=== PATIENT | male | born 1970 ===

== ENCOUNTER 2022-03-03 10:13 | Emergency (ER) | payer OTHER ==
[2022-03-03] MEDS ORDERED: SODIUM CHLORIDE 0.9% 1000 ML 1,000 ML IV ONE (12:11)
[2022-03-03 13:03] LABS: Blood Urea Nitrogen 13 mg/dL (9-20); Calcium 7.8 mg/dL (8.4-10.2); Hemolysis Index 1
[2022-03-03 13:07] LABS: BUN/Creatinine Ratio 26
[2022-03-03 13:13] LABS: Hematocrit 29.3 % (35.5-45.6); Hemoglobin 9.7 gm/dl (11.8-15.2); Mean Corpuscular HGB Conc 33 % (32-34); Mean Corpuscular Volume 84 fl (84-94); Platelet Count 144 K/mm3 (140-440); Red Blood Count 3.49 M/mm3 (3.65-5.03); Red Cell Distribution Width 14.6 % (13.2-15.2)
--- NOTE | 2022-03-03 13:37 | XRay Report ---
CHEST 1 VIEW 03/03/2022 1:11 PM INDICATION / CLINICAL INFORMATION: weakness. COMPARISON: None available. FINDINGS: SUPPORT DEVICES: None. HEART / MEDIASTINUM: No significant abnormality. LUNGS / PLEURA: Diffuse bilateral pulmonary opacities No pneumothorax. ADDITIONAL FINDINGS: No significant additional findings. IMPRESSION: 1. Diffuse bilateral pulmonary opacities. Signer Name: Stanley Jacobo MD Signed: 03/03/2022 1:33 PM Workstation Name: [id number]
[2022-03-03] MEDS ORDERED: AZITHROMYCIN/NS 500 MG/250 ML 500 MG/250 ML BAG IV ONE (14:00)
[2022-03-03] MEDS ORDERED: cefTRIAXone/NS 1 GM/50 ML 1 GM/50 ML BAG IV ONE (14:00)
[2022-03-03 15:03] LABS: ABG Base Excess -1.1 mmol/L (-2.0-3.0); ABG Methemoglobin 0.7 % (0.0-1.5); ABG PCO2 35.7 mm Hg; ABG PH 7.427 pH Units (7.350-7.450); ABG PO2 61.7 mm Hg (80.0-90.0)
[2022-03-03 15:10] LABS: Mucus,Urine 3+ /HPF
[2022-03-03 15:17] VITALS: BP 118/73
[2022-03-03 15:27] LABS: Bilirubin,Urine Negative (Negative); Blood,Urine Negative (Negative); Color,Urine Amber (Yellow)
[2022-03-03 15:28] LABS: Protein,Urine <15 mg/dL mg/dL (Negative)
[2022-03-03 15:34] LABS: Basophils % (Manual) 0 % (0.0-1.8); Eosinophils % (Manual) 0 % (0.0-4.3); Total Cells Counted 100
[2022-03-03 15:35] LABS: Anisocytosis 1+
[2022-03-03 15:36] LABS: Platelet Estimate Consistent w Auto; Target Cells 1+
--- NOTE | 2022-03-03 16:18 | Emergency Department Report ---
HPI - General Chief Complaint: Medical Clearance PUI?: Yes Time Seen by Provider: 03/03/22 11:17 - HPI HPI: 51-year-old male, currently in present, brought in via officer from retirement, for evaluation of generalized weakness. Patient reports he has had an intermittent cough since he has been present on February 17, 2022. He denies any chest pain shortness of breath or difficulty breathing. He states he is visiting from [place] and has been here for 3 months. He denies any known past medical history. No nausea vomiting fevers or chills. No abdominal pain. No night sweats, no bloody cough, no unintentional weight loss. Pain currently 0 out of 10. ED Past Medical Hx - Social History Smoking Status: Unknown if ever smoked - Medications Home Medications: Home Medications Medication Instructions Recorded Confirmed Last Taken Type Doxycycline Monohydrate 100 mg PO BID 7 Days #14 03/03/22 Unknown Rx ED Review of Systems ROS: Stated complaint: RESPITORY FAILURE Other details as noted in HPI Comment: All other systems reviewed and negative Constitutional: malaise Eyes: as per HPI ENT: as per HPI Respiratory: cough Cardiovascular: as per HPI Endocrine: no symptoms reported Gastrointestinal: denies: abdominal pain, nausea, vomiting, diarrhea, constipation, hematemesis, melena, hematochezia Genitourinary: denies: urgency, dysuria, frequency, hematuria, discharge, testicular pain, testicular mass, other Musculoskeletal: denies: back pain, joint swelling, arthralgia Skin: denies: rash, lesions, change in color, change in hair/nails, pruritus Neurological: denies: headache, weakness, paresthesias, confusion Physical Exam - Physical Exam Vital Signs: Vital Signs 03/03/22 03/03/22 03/03/22 10:13 10:45 11:01 Temperature 98.2 F Pulse Rate 104 H 98 H 86 Respiratory 18 23 13 Rate Blood Pressure 107/71 107/71 Blood Pressure 130/75 [Left] O2 Sat by Pulse 97 97 97 Oximetry 03/03/22 03/03/22 03/03/22 11:15 11:31 11:45 Temperature Pulse Rate 91 H 87 95 H Respiratory 12 11 L 21 Rate Blood Pressure 107/67 108/68 121/75 Blood Pressure [Left] O2 Sat by Pulse 95 96 95 Oximetry 03/03/22 03/03/22 03/03/22 12:01 12:15 12:31 Temperature Pulse Rate 81 86 82 Respiratory 13 16 12 Rate Blood Pressure 121/75 113/72 112/72 Blood Pressure [Left] O2 Sat by Pulse 95 92 93 Oximetry 03/03/22 03/03/22 03/03/22 12:45 13:01 13:15 Temperature Pulse Rate Respiratory Rate Blood Pressure 122/77 113/72 119/78 Blood Pressure [Left] O2 Sat by Pulse 98 100 99 Oximetry 03/03/22 03/03/22 03/03/22 13:31 13:46 14:59 Temperature Pulse Rate Respiratory Rate Blood Pressure 118/73 118/73 118/73 Blood Pressure [Left] O2 Sat by Pulse 98 98 99 Oximetry 03/03/22 03/03/22 15:01 15:15 Temperature Pulse Rate Respiratory Rate Blood Pressure 118/73 118/73 Blood Pressure [Left] O2 Sat by Pulse 100 100 Oximetry General: Gen: Middle-age male, cachectic and emaciated appearing, lying in stretcher, speaking in full sentences, wearing nasal cannula, no drooling no stridor no respiratory distress, HEENT: Normocephalic atraumatic pupils equally round and reactive to light extraocular muscles intact sclera anicteric Neck: Full range of motion, no midline spinal tenderness palpation, no JVD, no carotid bruits, no nuchal rigidity CVS: S1-S2 regular rate and rhythm with no gallops rubs or murmurs, chest wall nontender Pulmonary: Clear to auscultation bilaterally, no wheezes rales or rhonchi Abdomen: Soft nondistended nontender no guarding or rebound tenderness, no palpable deformities or step-offs, normal active bowel sounds, no hepatosplenomegaly, no pulsatile masses : Deferred Extremities: No cyanosis no clubbing no edema, intact distal peripheral pulses, Integumentary: Skin normal, no petechia no purpura no abscess no lacerations no evidence of trauma no evidence of infection Neuro: Patient is awake alert and oriented to person place time situation, mentating well, cranial nerves II through XII intact, no focal neurodeficits, sensation grossly tact Psych: Calm cooperative, mood affect normal ED Course Vital Signs 03/03/22 03/03/22 03/03/22 10:13 10:45 11:01 Temperature 98.2 F Pulse Rate 104 H 98 H 86 Respiratory 18 23 13 Rate Blood Pressure 107/71 107/71 Blood Pressure 130/75 [Left] O2 Sat by Pulse 97 97 97 Oximetry 03/03/22 03/03/22 03/03/22 11:15 11:31 11:45 Temperature Pulse Rate 91 H 87 95 H Respiratory 12 11 L 21 Rate Blood Pressure 107/67 108/68 121/75 Blood Pressure [Left] O2 Sat by Pulse 95 96 95 Oximetry 03/03/22 03/03/22 03/03/22 12:01 12:15 12:31 Temperature Pulse Rate 81 86 82 Respiratory 13 16 12 Rate Blood Pressure 121/75 113/72 112/72 Blood Pressure [Left] O2 Sat by Pulse 95 92 93 Oximetry 03/03/22 03/03/22 03/03/22 12:45 13:01 13:15 Temperature Pulse Rate Respiratory Rate Blood Pressure 122/77 113/72 119/78 Blood Pressure [Left] O2 Sat by Pulse 98 100 99 Oximetry 03/03/22 03/03/22 03/03/22 13:31 13:46 14:59 Temperature Pulse Rate Respiratory Rate Blood Pressure 118/73 118/73 118/73 Blood Pressure [Left] O2 Sat by Pulse 98 98 99 Oximetry 03/03/22 03/03/22 15:01 15:15 Temperature Pulse Rate Respiratory Rate Blood Pressure 118/73 118/73 Blood Pressure [Left] O2 Sat by Pulse 100 100 Oximetry - Reevaluation(s) Reevaluation #1: 03/03/22 16:15 I had an extensive discussion with the patient and advised him that he be admitted to the hospital due to his low oxygen level as well as bilateral pneumonia. However the patient adamantly refused stating "I [facility] to [facility] so they can release me so I can go back home to [place]." I strongly encouraged him repeatedly to be admitted to the hospital given that without supplemental oxygen his oxygen level remains in the 80s and he is at risk for decompensation. The patient is awake alert and oriented to person place and time and situation is mentating well. Per my clinical assessment he has a decision-making capacity. He is not in any extremis he is not altered and he appears to be mentating well. Risks of leaving AGAINST MEDICAL ADVICE were discussed at length with him. Patient informed that risk included but were not limited to: Respiratory failure, spreading infection, cardiac arrest, need for CPR, broken ribs, lung collapse, prolonged periods of low to no oxygen to brain, stroke, blindness, multiple organ failure, paralysis, chronic pain, need for tracheostomy, fertility, and . Patient is able to explain these risk back to me in his own words and does not appear to be confused or altered at the time of our discussion. Able to explain them in layman's terms. Patient signed out AGAINST MEDICAL ADVICE. He was discharged back to retirement in the custody of the accompanying attendance officer. ED Medical Decision Making - Lab Data Result diagrams: 03/03/22 12:19 03/03/22 12:19 - EKG Data -: EKG Interpreted by Me EKG shows normal: sinus rhythm Rate: normal - EKG Data When compared to previous EKG there are: previous EKG unavailable Interpretation: no acute changes - Radiology Data Radiology results: report reviewed - Medical Decision Making 51-year-old M presenting male brought in from retirement for evaluation of low oxygen levels and reports of cough. Patient on supplemental oxygen via nasal c annula here. When I turned the patient's oxygen off he maintained an oxygen saturation of 90% on room air. However with movement the patient was noted to have oxygen desaturation. ABG demonstrates confirmed high hypoxemia. Labs reviewed. COVID-negative. Chest x-ray demonstrates bilateral pulmonary infiltrates. Patient refused admission to the hospital. Risk of leaving AMA were discussed at length with him. Patient is awake alert and oriented to person place time situation is mentating well. He is in no extremis and has no altered sensorium. Patient was able to explain risk back to me in his own words without any obvious confusion or misunderstanding. Patient signed out AGAINST MEDICAL ADVICE. Critical Care Time: No Critical care attestation.: If time is entered above; I have spent that time in minutes in the direct care of this critically ill patient, excluding procedure time. ED Disposition Clinical Impression: Left against medical advice, Hypoxemia, Pneumonia Disposition: 07 LEFT AGAINST MEDICAL ADVICE Is pt being admited?: No Does the pt Need Aspirin: No Condition: Stable Instructions: Bacterial Pneumonia (ED) Additional Instructions: Your COVID test today is negative. You are leaving AGAINST MEDICAL ADVICE. Your oxygen level is low and you have pneumonia in both of your lungs. Strongly advised that you be admitted to the hospital so that you can receive supplemental oxygen as well as to be given antibiotics intravenously. By leaving AGAINST MEDICAL ADVICE you are excepting sole responsibility that he you may become worse, he may not be able to breathe, your lungs and heart may stop, your organs may fail, and you may . Take doxycycline 100mg by mouth twice a day for 7 days. Be sure to finish your entire prescription. Go to the nearest emergency department as soon as possible if you develop severe or worsening shortness of breath, chest pain, lightheadedness or dizziness, fever of 100.4 Fahrenheit or higher, or if any other new worrisome symptoms develop Prescriptions: Doxycycline Monohydrate 100 mg PO BID 7 Days #14 Referrals: JUSTIN SEGAL MD [Primary Care Provider] - 3-5 Days
== END 2022-03-03 16:25 | disposition left against medical advice (07) ==
LOC: ED 10:13
DX: J18.9 Pneumonia, unspecified organism (principal); R09.02 Hypoxemia; Z20.822 Contact with and (suspected) exposure to COVID-19; Z79.899 Other long term (current) drug therapy
CPT/HCPCS: 36415; 71045; 80048; 81001; 82803; 83880; 85007; 85025; 87040; 96361; 96365; 96367; 99284; J0456; J0696; J7030; U0003

== ENCOUNTER 2022-03-05 10:57 | Inpatient (IN) | payer OTHER ==
--- NOTE | 2022-03-05 11:59 | Emergency Department Report ---
ED General Adult HPI - General Chief complaint: Altered Mental Status Stated complaint: POSS SEPSIS Time Seen by Provider: 03/05/22 11:29 Source: EMS Mode of arrival: Stretcher Limitations: Altered Mental Status - History of Present Illness Initial comments: 51 yo male prisoner with no reported medical problems presents from nursing home with complaints of "possible sepsis". Patient is alert and fully oriented, but is very cachectic appearing, however patient only complains of sacral pain where he has a sacral decubitus. Patient was found hypotensive and tachycardic with a fever prior to arrival. Patient denies cough, sore throat, chest pain, or urinary symptoms. Patient denies nausea, vomiting, or abdominal pain. Patient states that he was tested for COVID-19 in nursing home, and that it was negative. Patient was seen here 2 days ago, and was expected to be admitted, but signed out AGAINST MEDICAL ADVICE. Patient was dehydrated on that visit to the emergency department and received fluids to help with his hypotension. Otherwise, patient denies any known alleviating or aggravating factors. - Related Data Previous Rx's Medication Instructions Recorded Last Taken Type Doxycycline Monohydrate 100 mg PO BID 7 Days #14 03/03/22 Unknown Rx Allergies Allergy/AdvReac Type Severity Reaction Status Date / Time No Known Allergies Allergy Unverified 03/03/22 10:25 ED Review of Systems ROS: Stated complaint: POSS SEPSIS Other details as noted in HPI Comment: All other systems reviewed and negative (Patient denies any complaints, however appears to be confabulating or in denial) Constitutional: no symptoms reported. denies: chills, fever, weakness Eyes: denies: eye pain, eye discharge, vision change ENT: denies: ear pain, throat pain Respiratory: no symptoms reported. denies: cough, shortness of breath, wheezing Cardiovascular: denies: chest pain, palpitations Endocrine: no symptoms reported Gastrointestinal: denies: abdominal pain, nausea, diarrhea Genitourinary: denies: urgency, dysuria Musculoskeletal: denies: back pain, joint swelling, arthralgia Skin: other (Decubitus ulcer). denies: rash, lesions Neurological: denies: headache, weakness, paresthesias Psychiatric: denies: anxiety, depression Hematological/Lymphatic: denies: easy bleeding, easy bruising ED Past Medical Hx - Past Medical History Additional medical history: Patient denies any medical or psychiatric diagnoses - Social History Smoking Status: Unknown if ever smoked - Medications Home Medications: Home Medications Medication Instructions Recorded Confirmed Last Taken Type Doxycycline Monohydrate 100 mg PO BID 7 Days #14 03/03/22 03/07/22 Unknown Rx ED Physical Exam - General Limitations: Physical Limitation General appearance: alert, in no apparent distress, cachectic, other (Very thin with bitemporal wasting) - Head Head exam: Present: atraumatic, normocephalic - Eye Eye exam: Present: normal appearance, PERRL, EOMI - ENT ENT exam: Present: mucous membranes dry - Neck Neck exam: Present: normal inspection - Respiratory Respiratory exam: Present: normal lung sounds bilaterally. Absent: respiratory distress - Cardiovascular Cardiovascular Exam: Present: normal rhythm, tachycardia. Absent: systolic murmur, diastolic murmur, rubs, gallop - GI/Abdominal GI/Abdominal exam: Present: soft, normal bowel sounds. Absent: distended, tenderness, guarding - Rectal Rectal exam: Present: deferred - Extremities Exam Extremities exam: Present: normal inspection - Back Exam Back exam: Present: normal inspection - Neurological Exam Neurological exam: Present: alert, oriented X3, CN II-XII intact, abnormal gait, other (Appears generalized weak and has difficulty moving around in his stretcher) - Psychiatric Psychiatric exam: Present: normal affect, normal mood, flat affect - Skin Skin exam: Present: warm, dry, intact, normal color, pallor, other (Large sacral decubitus ulcer with a dressing in place). Absent: rash ED Course Vital Signs 03/05/22 03/05/22 03/05/22 11:03 11:23 11:31 Temperature 100.5 F H Pulse Rate 110 H 104 H 99 H Respiratory 22 15 Rate Blood Pressure 88/51 Blood Pressure 88/54 [Left] O2 Sat by Pulse 79 L 91 91 Oximetry 03/05/22 03/05/22 03/05/22 11:45 12:01 12:15 Temperature Pulse Rate 103 H 94 H 92 H Respiratory 21 16 21 Rate Blood Pressure 96/59 96/59 96/59 Blood Pressure [Left] O2 Sat by Pulse 88 91 90 Oximetry 03/05/22 03/05/22 03/05/22 12:31 12:45 13:01 Temperature Pulse Rate 88 93 H 91 H Respiratory 17 13 12 Rate Blood Pressure 96/59 90/58 90/58 Blood Pressure [Left] O2 Sat by Pulse 92 91 91 Oximetry 03/05/22 03/05/22 03/05/22 13:15 13:31 13:45 Temperature Pulse Rate 88 90 90 Respiratory 13 16 21 Rate Blood Pressure 90/58 90/58 90/58 Blood Pressure [Left] O2 Sat by Pulse 91 93 80 L Oximetry 03/05/22 03/05/22 03/05/22 14:01 14:15 14:31 Temperature Pulse Rate 87 85 85 Respiratory 25 H 16 12 Rate Blood Pressure 125/73 125/73 125/73 Blood Pressure [Left] O2 Sat by Pulse 95 95 93 Oximetry 03/06/22 03/06/22 03/06/22 09:01 09:03 09:04 Temperature 98.2 F Pulse Rate 101 H Respiratory 18 Rate Blood Pressure 119/62 Blood Pressure [Left] O2 Sat by Pulse 94 Oximetry 03/06/22 03/06/22 03/06/22 10:01 11:01 12:01 Temperature Pulse Rate Respiratory Rate Blood Pressure 125/82 105/70 127/78 Blood Pressure [Left] O2 Sat by Pulse 94 91 92 Oximetry 03/06/22 03/06/22 03/06/22 13:01 14:01 15:00 Temperature 100.3 F H Pulse Rate 110 H Respiratory Rate Blood Pressure 162/105 140/76 Blood Pressure [Left] O2 Sat by Pulse 95 86 Oximetry 03/06/22 03/06/22 03/06/22 15:01 16:01 16:19 Temperature Pulse Rate Respiratory Rate Blood Pressure 104/62 113/76 113/76 Blood Pressure [Left] O2 Sat by Pulse 87 94 93 Oximetry 03/06/22 03/06/22 03/06/22 17:00 18:00 19:00 Temperature Pulse Rate 112 H Respiratory 18 Rate Blood Pressure 113/76 96/44 97/54 Blood Pressure [Left] O2 Sat by Pulse 90 90 93 Oximetry 03/06/22 03/06/22 03/06/22 20:01 21:01 22:01 Temperature Pulse Rate Respiratory Rate Blood Pressure 99/62 104/71 113/73 Blood Pressure [Left] O2 Sat by Pulse 89 95 95 Oximetry 03/06/22 03/06/22 03/07/22 23:01 23:16 00:01 Temperature Pulse Rate Respiratory Rate Blood Pressure 118/76 115/74 Blood Pressure [Left] O2 Sat by Pulse 93 96 91 Oximetry 03/07/22 03/07/22 03/07/22 01:01 01:11 01:21 Temperature Pulse Rate Respiratory Rate Blood Pressure 130/73 130/73 130/73 Blood Pressure [Left] O2 Sat by Pulse 93 96 96 Oximetry 03/07/22 01:30 Temperature Pulse Rate Respiratory Rate Blood Pressure 130/73 Blood Pressure [Left] O2 Sat by Pulse 96 Oximetry - Reevaluation(s) Reevaluation #1: Patient had improvement of his vital signs after fluids, but decision was made to admit the patient to the hospital, as he continued to be hypoxic. Reevaluation #2: After evaluation by the hospitalist, it was decided that the patient would be discharged back to [facility] as his vital signs have improved, greatly, and he is on oxygen in the present. ED Medical Decision Making - Lab Data Result diagrams: 03/09/22 05:58 03/09/22 05:58 Critical Care Time: Yes Critical care time in (mins) excluding proc time.: 33 Critical care attestation.: If time is entered above; I have spent that time in minutes in the direct care of this critically ill patient, excluding procedure time. Critical Care Time: 33 ED Disposition Clinical Impression: Renal mass, Hypoxemia Bilateral pneumonia Qualifiers: Pneumonia type: due to unspecified organism Lung location: unspecified part of lung Qualified Code(s): J18.9 - Pneumonia, unspecified organism Sacral decubitus ulcer Qualifiers: Pressure injury stage: unspecified pressure injury stage Qualified Code(s): L89.159 - Pressure ulcer of sacral region, unspecified stage Disposition: ADMITTED INPATIENT Is pt being admited?: Yes Does the pt Need Aspirin: No Condition: Stable
[2022-03-05] MEDS ORDERED: SODIUM CHLORIDE 0.9% 1000 ML 1,000 ML IV ONE (12:04)
[2022-03-05] MEDS ORDERED: CEFEPIME/NS 1 GM/100 ML 1 GM/100 ML BAG IV ONE (12:08)
[2022-03-05] MEDS ORDERED: VANCOMYCIN/NS 1 GM/250 ML 1 GM/250 ML BAG IV ONE (12:08)
--- NOTE | 2022-03-05 12:53 | XRay Report ---
CHEST 1 VIEW 03/05/2022 11:45 AM INDICATION / CLINICAL INFORMATION: Weakness. COMPARISON: 03/03/2022 FINDINGS: SUPPORT DEVICES: None. HEART / MEDIASTINUM: No significant abnormality. LUNGS / PLEURA: Bilateral pulmonary opacities appear grossly unchanged since the exam 2 days ago. No pneumothorax. ADDITIONAL FINDINGS: No significant additional findings. IMPRESSION: 1. No significant interval change. Stable bilateral pulmonary opacities or congestive changes. Signer Name: Abraham Del Valle Jr, MD Signed: 03/05/2022 12:49 PM Workstation Name: [id number]
[2022-03-05 13:03] LABS: Hematocrit 27.8 % (35.5-45.6); Hemoglobin 9.2 gm/dl (11.8-15.2); Mean Corpuscular HGB Conc 33 % (32-34); Mean Corpuscular Volume 84 fl (84-94); Platelet Count 143 K/mm3 (140-440); Red Blood Count 3.29 M/mm3 (3.65-5.03)
[2022-03-05 13:08] LABS: Alanine Aminotransferase 23 units/L (7-56); Blood Urea Nitrogen 12 mg/dL (9-20); Calcium 7.8 mg/dL (8.4-10.2); Hemolysis Index 2
[2022-03-05 13:10] LABS: BUN/Creatinine Ratio 30
[2022-03-05 13:35] LABS: INR 1.11 (0.87-1.13)
[2022-03-05 16:10] LABS: Bilirubin,Urine Negative (Negative); Color,Urine Yellow (Yellow)
[2022-03-05 16:11] LABS: Blood,Urine Negative (Negative); Protein,Urine <15 mg/dL mg/dL (Negative)
[2022-03-05 16:40] LABS: Anisocytosis 1+; Basophils % (Manual) 0 % (0.0-1.8); Eosinophils % (Manual) 0 % (0.0-4.3); Monocytes % (Manual) 0 % (0.0-7.3); Myelocytes # (Manual) 0.3 K/mm3; Platelet Estimate Consistent w Auto; Target Cells 1+; Total Cells Counted 100
--- NOTE | 2022-03-05 16:54 | Cat Scan Report ---
CT ABDOMEN AND PELVIS WITH CONTRAST INDICATION / CLINICAL INFORMATION: sacral decubitus and sepsis; r/o perianal abscess 100ml of [id number] . TECHNIQUE: Axial CT images were obtained through the abdomen and pelvis after 100 cc of Omnipaque [address] scans at this location are performed using CT dose reduction for ALARA by means of automated exposure control. COMPARISON: None available. FINDINGS: LOWER CHEST: Groundglass attenuation is noted in the bilateral lung bases. In the bilateral lower lob es there are foci of increased consolidations well. Within the lingula there is a subpleural nodular- like density measuring 1.2 x 1.5 cm. AORTA / ARTERIES: No significant abnormality. IVC / VEINS: No significant abnormality. LYMPH NODES: Evaluation limited secondary to lack of intraperitoneal fat COLON: No significant abnormality. APPENDIX: No significant abnormality. STOMACH / SMALL BOWEL: No significant abnormality. PERITONEUM: No free fluid. No free air. No fluid collection. LIVER: No significant abnormality. GALLBLADDER: No significant abnormality. BILE DUCTS: No significant abnormality. PANCREAS: No significant abnormality. SPLEEN: No significant abnormality. ADRENALS: No significant abnormality. RIGHT KIDNEY / URETER: There is a masslike density within the interpolar region of the right kidney m easuring approximately 3.1 x 3.3 x 3.4 cm. LEFT KIDNEY / URETER: There is a prominent stone within the left collecting system measuring 1.7 x 1. 2 x 1.9 cm. There is associated moderate hydronephrosis. URINARY BLADDER: No significant abnormality. REPRODUCTIVE ORGANS: No significant abnormality. SKELETAL SYSTEM: Scattered degeneration. ADDITIONAL FINDINGS: Along the left perineum there is focal area of skin thickening with subcutaneous emphysema. This does not demonstrate a clearly identifiable fluid collection. IMPRESSION: 1. Along the left perineum there is a focal area of skin thickening with subcutaneous emphysema sugge sting infectious process. No clearly identifiable drainable fluid collection. 2. Masslike density within the interpolar region of the left kidney measuring up to 3.4 cm. This may represent a prominent column of Joshua; however, the spherical shape of this is of concern and additi onal imaging with renal ultrasound is advised. 3. Prominent 1.9 cm stone within the left collecting system causing moderate hydronephrosis. 4. Groundglass attenuation within the bilateral lung bases concerning for atypical infectious process . There is also increased consolidation within the bilateral lower lobes and superimposed bacterial i nfectious process is not excluded. 5. Single incidental pulmonary nodule(s) in the left lingular lobe measuring 15 mm with solid charact eristics. Recommendation according to Fleischner Society 2017 Guidelines: Low Risk or High Risk Patie nt: Consider CT at 3 months, PET/CT, or tissue sampling. Signer Name: Clinton Rangel DO Signed: 03/05/2022 4:50 PM Workstation Name: [id number]
[2022-03-05 17:13] LABS: RBC,Urine < 1.0 /HPF (0.0-6.0); WBC,Urine < 1.0 /HPF (0.0-6.0)
--- NOTE | 2022-03-05 22:14 | Event Note ---
Date: 03/05/22 Patient comes in for fever Patient was evaluated on 03/03/2022. patient has bilateral pulmonary opacities and is on oxygen at the [facility]. During my examination patient is stable and O2 saturation around 94% on room air Blood pressure is normal after IV fluids Discharge diagnosis viral syndrome and acute bronchitis Patient discharged on Levaquin for 7 days@50 mg once a day Patient to continue oxygen at [facility] Patient also has underlying possible pulmonary fibrosis-advanced bilateral opacities on the chest x-ray
[2022-03-06] MEDS ORDERED: SODIUM CHLORIDE 0.9% 1000 ML 1,000 ML IV ONE (14:41)
[2022-03-06] MEDS ORDERED: ACETAMINOPHEN 325 MG/10.15 ML ORAL LIQD UNIT DOSE PO ONE (14:41)
[2022-03-06] MEDS ORDERED: ACETAMINOPHEN 325 MG TAB PO PRN (19:58)
[2022-03-06] MEDS ORDERED: MORPHINE 2 MG/1 ML INJ IV PRN (19:58)
[2022-03-06] MEDS ORDERED: ONDANSETRON 4 MG/2 ML INJ IV PRN (19:58)
[2022-03-06] MEDS ORDERED: SODIUM CHLORIDE 0.9% 1000 ML 1,000 ML IV SCH (20:00)
[2022-03-06] MEDS ORDERED: IPRATROPIUM/ALBUTEROL SULFATE 3 ML AMPUL.NEB IH PRN (20:06)
--- NOTE | 2022-03-06 20:23 | Emergency Department Report ---
Blank Doc - Documentation Documentation: Patient was discharged from the emergency department, yesterday, but was relea sed from police custody, and did not have a way to get home. Patient had been on oxygen in the [place] [facility], and had a walker to help him get around, but has difficulty ambulating here and becomes hypoxic when he ambulates and/or when his oxygen is turned down or off. Case management evaluated the patient, and denied provide oxygen therapy for him to go home with, nor could they provide transportation. Patient's family cannot pick him up until Thursday, when he is scheduled to fly back to [place], where he lives. A ticket has already been purchased for him. While patient was waiting for a ride, he became hypoxic, again. He became tachycardic and was found to have a fever and mild hypotension again. With that, his generalized weakness, his inability to perform ADLs, it was agreed that the patient would be admitted to the hospital for further treatment.
[2022-03-06] MEDS: cefTRIAXone/NS 2 GM/100 ML 2 GM/100 ML BAG IV SCH (22:29)
[2022-03-07] MEDS: AZITHROMYCIN/NS 500 MG/250 ML 500 MG/250 ML BAG IV SCH ×2 (01:55→02:14)
[2022-03-07] MEDS: FAMOTIDINE 20 MG TAB PO SCH ×3 (01:56→21:38)
[2022-03-07] MEDS: HEPARIN 5,000 UNIT/1 ML VIAL SUB-Q SCH ×3 (01:56→21:37)
[2022-03-07] MEDS: methylPREDNISolone Sod Succinate 125 MG/2 ML INJ IV SCH ×4 (01:57→21:37)
--- NOTE | 2022-03-07 06:44 | History and Physical Report ---
History of Present Illness Date of examination: 03/06/22 Date of admission: 03/06/22 19:58 Chief complaint: Persistent hypoxia History of present illness: Patient was evaluated by me yesterday and was discharged from the emergency room. Patient apparently had home oxygen. Patient has pulmonary fibrosis and hypoxia. Has some cough. Patient was not discharged because of social issues and charges were dropped by the police department. Home oxygen could not be arranged and transportation could not be arranged. Patient continues to be in emergency room needing oxygen and breathing treatments. On room air patient's oxygen saturation is 82. Otherwise lying comfortably. ER note Patient was discharged from the emergency department, yesterday, but was released from police custody, and did not have a way to get home. Patient had been on oxygen in the residential, and had a walker to help him get around, but has difficulty ambulating here and becomes hypoxic when he ambulates and/or when his oxygen is turned down or off. Case management evaluated the patient, and denied provide oxygen therapy for him to go home with, nor could they provide transportation. Patient's family cannot pick him up until Thursday, when he is scheduled to fly back to [place], where he lives. A ticket has already been purchased for him. While patient was waiting for a ride, he became hypoxic, again. He became tachycardic and was found to have a fever and mild hypotension again. With that, his generalized weakness, his inability to perform ADLs, it was agreed that the patient would be admitted to the hospital for further treatment. Past History Past Medical History: COPD, other (COPD) Past Surgical History: No surgical history, Other (Poor historian) Social history: lives with family, full code Family history: hypertension Medications and Allergies Allergies Allergy/AdvReac Type Severity Reaction Status Date / Time No Known Allergies Allergy Unverified 03/03/22 10:25 Home Medications Medication Instructions Recorded Confirmed Last Taken Type Doxycycline Monohydrate 100 mg PO BID 7 Days #14 03/03/22 Unknown Rx Active Meds: Active Medications Acetaminophen (Acetaminophen 325 Mg Tab) 650 mg PO Q4H PRN PRN Reason: Pain MILD(1-3)/Fever >100.5/LOPEZ Albuterol/Ipratropium (Ipratropium/Albuterol Sulfate 3 Ml Ampul.Neb) 1 ampul IH QIDRT MINOO Famotidine (Famotidine 20 Mg Tab) 20 mg PO BID [facility] Last Admin: 03/07/22 01:56 Dose: Not Given Heparin Sodium (Porcine) (Heparin 5,000 Unit/1 Ml Vial) 5,000 unit SUB-Q Q12HR [facility] Last Admin: 03/07/22 01:56 Dose: Not Given Sodium Chloride (Nacl 0.9% 1000 Ml) 1,000 mls @ 75 mls/hr IV DIRECT MINOO Azithromycin (Zithromax/Ns) 500 mg in 250 mls @ 250 mls/hr IV Q24H [facility] Last Admin: 03/07/22 02:14 Dose: 250 mls/hr Ceftriaxone Sodium (Rocephin/Ns 2 Gm/100 Ml) 2 gm in 100 mls @ 200 mls/hr IV Q24HR [facility]; Protocol Last Admin: 03/06/22 22:29 Dose: 200 mls/hr Methylprednisolone Sodium Succinate (Methylprednisolone Sod Succinate 125 Mg/2 Ml Inj) 60 mg IV Q8HR [facility] Last Admin: 03/07/22 05:51 Dose: 60 mg Morphine Sulfate (Morphine 2 Mg/1 Ml Inj) 2 mg IV Q4H PRN PRN Reason: Pain, Moderate (4-6) Last Admin: 03/06/22 22:29 Dose: 2 mg Ondansetron HCl (Ondansetron 4 Mg/2 Ml Inj) 4 mg IV Q8H PRN PRN Reason: Nausea And Vomiting Oxycodone/Acetaminophen (Oxycodone /Acetaminophen 5-325mg Tab) 1 tab PO Q6H PRN PRN Reason: Pain, Moderate (4-6) Sodium Chloride (Sodium Chloride 0.9% 10 Ml Flush Syringe) 10 ml IV BID [facility] Last Admin: 03/07/22 01:56 Dose: Not Given Sodium Chloride (Sodium Chloride 0.9% 10 Ml Flush Syringe) 10 ml IV PRN PRN PRN Reason: LINE FLUSH Review of Systems All systems: negative Exam - Constitutional Vitals: Temp Pulse Resp BP Pulse Ox 98.3 F 76 18 121/75 95 03/07/22 04:48 03/07/22 04:48 03/07/22 04:48 03/07/22 04:48 03/07/22 04:48 General appearance: Present: mild distress, well-nourished - EENT Eyes: Present: PERRL ENT: hearing intact, clear oral mucosa - Neck Neck: Present: supple, normal ROM - Respiratory Respiratory effort: normal Respiratory: bilateral: CTA, rhonchi - Cardiovascular Heart rate: 78 Rhythm: regular Heart Sounds: Present: S1 & S2. Absent: rub, click - Extremities Extremities: pulses symmetrical, No edema Peripheral Pulses: within normal limits - Abdominal General gastrointestinal: Present: soft, non-tender, non-distended, normal bowel sounds Male genitourinary: Present: normal - Integumentary Integumentary: Present: clear, warm, dry - Musculoskeletal Musculoskeletal: gait normal, strength equal bilaterally - Psychiatric Psychiatric: appropriate mood/affect, intact judgment & insight - Neurologic Neurologic: CNII-XII intact, moves all extremities HEART Score - HEART Score Troponin: Troponin T < 0.010 ng/mL (0.00-0.029) 03/05/22 12:22 Results - Labs CBC & Chem 7: 03/05/22 12:22 03/05/22 12:22 Labs: Laboratory Last Values WBC 4.3 K/mm3 (4.5-11.0) L 03/05/22 12:22 RBC 3.29 M/mm3 (3.65-5.03) L 03/05/22 12:22 Hgb 9.2 gm/dl (11.8-15.2) L 03/05/22 12:22 Hct 27.8 % (35.5-45.6) L 03/05/22 12:22 MCV 84 fl (84-94) 03/05/22 12:22 MCH 28 pg (28-32) 03/05/22 12:22 MCHC 33 % (32-34) 03/05/22 12:22 RDW 15.0 % (13.2-15.2) 03/05/22 12:22 Plt Count 143 K/mm3 (140-440) 03/05/22 12:22 Add Manual Diff Complete 03/05/22 12:22 Total Counted 100 03/05/22 12:22 Seg Neuts % (Manual) 73.0 % (40.0-70.0) H 03/05/22 12:22 Band Neutrophils % 0 % 03/05/22 12:22 Lymphocytes % (Manual) 16.0 % (13.4-35.0) 03/05/22 12:22 Reactive Lymphs % (Man) 1.0 % 03/05/22 12:22 Monocytes % (Manual) 0 % (0.0-7.3) 03/05/22 12:22 Eosinophils % (Manual) 0 % (0.0-4.3) 03/05/22 12:22 Basophils % (Manual) 0 % (0.0-1.8) 03/05/22 12:22 Metamyelocytes % 3.0 % 03/05/22 12:22 Myelocytes % 7.0 % 03/05/22 12:22 Promyelocytes % 0 % 03/05/22 12:22 Blast Cells % 0 % 03/05/22 12:22 Nucleated RBC % Not Reportable 03/05/22 12: Seg Neutrophils # Man 3.1 K/mm3 (1.8-7.7) 03/05/22 12:22 Band Neutrophils # 0.0 K/mm3 03/05/22 12:22 Lymphocytes # (Manual) 0.7 K/mm3 (1.2-5.4) L 03/05/22 12:22 Abs React Lymphs (Man) 0.0 K/mm3 03/05/22 12:22 Monocytes # (Manual) 0.0 K/mm3 (0.0-0.8) 03/05/22 12:22 Eosinophils # (Manual) 0.0 K/mm3 (0.0-0.4) 03/05/22 12:22 Basophils # (Manual) 0.0 K/mm3 (0.0-0.1) 03/05/22 12:22 Metamyelocytes # 0.1 K/mm3 03/05/22 12:22 Myelocytes # 0.3 K/mm3 03/05/22 12:22 Promyelocytes # 0.0 K/mm3 03/05/22 12:22 Blast Cells # 0.0 K/mm3 03/05/22 12:22 WBC Morphology Not Reportable 03/05/22 12:22 Hypersegmented Neuts Not Reportable 03/05/22 12:22 Hyposegmented Neuts Not Reportable 03/05/22 12:22 Hypogranular Neuts Not Reportable 03/05/22 12:22 Smudge Cells Not Reportable 03/05/22 12:22 Toxic Granulation Not Reportable 08/10/22 12:22 Toxic Vacuolation Not Reportable 03/05/22 12:22 Dohle Bodies Not Reportable 03/05/22 12:22 Pelger-Huet Anomaly Not Reportable 03/05/22 12:22 Laura Rods Not Reportable 03/05/22 12:22 Platelet Estimate Consistent w auto 03/05/22 12:22 Clumped Platelets Not Reportable 03/05/22 12:22 Plt Clumps, EDTA Not Reportable 03/05/22 12:22 Large Platelets Not Reportable 03/05/22 12:22 Giant Platelets Not Reportable 03/05/22 12:22 Platelet Satelliting Not Reportable 03/05/22 12:22 Plt Morphology Comment Not Reportable 03/05/22 12:22 RBC Morphology Not Reportable 03/05/22 12:22 Dimorphic RBCs Not Reportable 03/05/22 12:22 Polychromasia Few 03/05/22 12:22 Hypochromasia Not Reportable 03/05/22 12:22 Poikilocytosis Not Reportable 03/05/22 12:22 Anisocytosis 1+ 03/05/22 12:22 Microcytosis Not Reportable 03/05/22 12:22 Macrocytosis Not Reportable 03/05/22 12:22 Spherocytes Not Reportable 03/05/22 12:22 Pappenheimer Bodies Not Reportable 03/05/22 12:22 Sickle Cells Not Reportable 03/05/22 12:22 Target Cells 1+ 03/05/22 12:22 Tear Drop Cells Not Reportable 03/05/22 12:22 Ovalocytes Not Reportable 03/05/22 12:22 Helmet Cells Not Reportable 03/05/22 12:22 [place]-Loving Bodies Not Reportable 03/05/22 12:22 [place] Rings Not Reportable 03/05/22 12:22 [place] Cells Not Reportable 03/05/22 12:22 Bite Cells Not Reportable 03/05/22 12:22 Crenated Cell Not Reportable 03/05/22 12:22 Elliptocytes Not Reportable 03/05/22 12:22 Acanthocytes (Spur) Not Reportable 03/05/22 12:22 Rouleaux Not Reportable 03/05/22 12:22 Hemoglobin C Crystals Not Reportable 03/05/22 12:22 Schistocytes Not Reportable 03/05/22 12:22 Malaria parasites Not Reportable 03/05/22 12:22 Nelson Bodies Not Reportable 03/05/22 12:22 Hem Pathologist Commnt No 03/05/22 12:22 PT 15.6 Sec. (12.2-14.9) H 03/05/22 12:22 INR 1.11 (0.87-1.13) 03/05/22 12:22 Sodium 137 mmol/L (137-145) 03/05/22 12:22 Potassium 4.1 mmol/L (3.6-5.0) 03/05/22 12:22 Chloride 105.3 mmol/L (98-107) 03/05/22 12:22 Carbon Dioxide 24 mmol/L (22-30) 03/05/22 12:22 Anion Gap 12 mmol/L 03/05/22 12:22 BUN 12 mg/dL (9-20) 03/05/22 12:22 Creatinine 0.4 mg/dL (0.8-1.3) L 03/05/22 12:22 Estimated GFR > 60 ml/min 03/05/22 12:22 BUN/Creatinine Ratio 30 % 03/05/22 12:22 Glucose 93 mg/dL (75-100) 03/05/22 12:22 Calcium 7.8 mg/dL (8.4-10.2) L 03/05/22 12:22 Total Bilirubin 0.20 mg/dL (0.1-1.2) 03/05/22 12:22 AST 51 units/L (5-40) H 03/05/22 12:22 ALT 23 units/L (7-56) 03/05/22 12:22 Alkaline Phosphatase 70 units/L (35-129) 03/05/22 12:22 Lactate Dehydrogenase 493 units/L (91-180) H 03/05/22 12:22 Troponin T < 0.010 ng/mL (0.00-0.029) 03/05/22 12:22 Total Protein 5.8 g/dL (6.3-8.2) L 03/05/22 12:22 Albumin 2.0 g/dL (3.9-5) L 03/05/22 12:22 Albumin/Globulin Ratio 0.5 % 03/05/22 12:22 Urine Color Yellow (Yellow) 03/05/22 13:57 Urine Turbidity Clear (Clear) 03/05/22 13:57 Urine pH 6.0 (5.0-7.0) 03/05/22 13:57 Ur Specific [place] 1.015 (1.003-1.030) 03/05/22 13:57 Urine Protein <15 mg/dl mg/dL (Negative) 03/05/22 13:57 Urine Glucose (UA) Negative mg/dL (Negative) 03/05/22 13:57 Urine Ketones Negative mg/dL (Negative) 03/05/22 13:57 Urine Blood Negative (Negative) 03/05/22 13:57 Urine Nitrite Negative (Negative) 03/05/22 13:57 Urine Bilirubin Negative (Negative) 03/05/22 13:57 Urine Urobilinogen 0.0 mg/dL (<2.0) 03/05/22 13:57 Ur Leukocyte Esterase Negative (Negative) 03/05/22 13:57 Urine WBC (Auto) < 1.0 /HPF (0.0-6.0) 03/05/22 13:57 Urine RBC (Auto) < 1.0 /HPF (0.0-6.0) 03/05/22 13:57 U Epithel Cells (Auto) 1.0 /HPF (0-13.0) 03/05/22 13:57 Microbiology: Microbiology 03/05/22 12:22 Peripheral/Venous Blood Culture - Preliminary NO GROWTH AFTER 24 HOURS 03/05/22 12:22 Peripheral/Venous Blood Culture - Preliminary NO GROWTH AFTER 24 HOURS - Imaging and Cardiology Chest x-ray: report reviewed CT scan - abdomen: report reviewed Imaging and Cardiology: Chest x-ray Stable bilateral pulmonary opacities or congestive changes Abdomen/pelvis CT Maxillary density reviewed with her interpolar region of the left kidney measuring up to 3.4 cm . imaging with ultrasound advised. Probable 1.9 cm stone within the left collecting system. Moderate hydronephrosis. Groundglass attenuation of the bilateral lung bases concerning for atypical infectious process. There is also increased consolidation within the bilateral lower lobes and superimposed bacterial infectious process is not excluded. Single incidental pulmonary nodules in the left lingular lobe measuring 15 mm with solid .. Leonard/IV: Voiding Method Urinal Assessment and Plan Advance Directives: Yes (Full code) VTE prophylaxis?: Chemical Plan of care discussed with patient/family: Yes - Patient Problems (1) Acute respiratory failure with hypoxia Current Visit: Yes Status: Acute Plan to address problem: Possibility of underlying pneumonia and COPD Patient started on IV antibiotics, duo nebs and steroids (2) Bilateral pneumonia Current Visit: Yes Status: Acute Plan to address problem: Patient initiated on Zithromax and IV Rocephin. COVID-pneumonia to be ruled out. Steroids DuoNebs [id number] and as needed. (3) COPD exacerbation Current Visit: Yes Status: Acute Plan to address problem: Patient is never a smoker. Duo nebs, IV antibiotics and IV steroids. Pulmonary consult requested. (4) Right renal mass Current Visit: Yes Status: Chronic Plan to address problem: Renal ultrasound requested for delineation. (5) DVT prophylaxis Current Visit: Yes Status: Acute Plan to address problem: On heparin GI prophylaxis (6) Advance care planning Current Visit: Yes Status: Acute Plan to address problem: Disease education conducted, care plan discussed, diagnosis discussed, patient acknowledged understanding with care plan and +30 minutes.
[2022-03-07] MEDS ORDERED: methylPREDNISolone Sod Succinate 125 MG/2 ML INJ IV SCH (07:00)
[2022-03-07 08:41] LABS: Hematocrit 26.8 % (35.5-45.6); Hemoglobin 9.2 gm/dl (11.8-15.2); Mean Corpuscular HGB Conc 34 % (32-34); Mean Corpuscular Volume 83 fl (84-94); Platelet Count 156 K/mm3 (140-440); Red Blood Count 3.24 M/mm3 (3.65-5.03); Red Cell Distribution Width 14.3 % (13.2-15.2)
--- NOTE | 2022-03-07 08:46 | Electrocardiograph Report ---
[facility] Test Date: 2022-03-05 Test Time: 11:26:05 Pat Name: CYNTHIA ORELLANA Department: Room: A377 Gender: M Clinical Statistics Manager: [birth year] : 1970 Requested By: FUNMILAYO GUILLORY Order Number: [id number] Reading MD: Jakub Salmeron Measurements Intervals [place] Rate: 100 P: 71 WI: 119 QRS: 74 QRSD: 77 T: 83 QT: 335 QTc: 431 Interpretive Statements Sinus tachycardia Nonspecific T abnrm, anterolateral leads ST elev, probable normal early repol pattern No previous ECG available for comparison Electronically Signed On 03-07-2022 8:46:16 EDT by Jakub Salmeron
[2022-03-07 08:50] LABS: Alanine Aminotransferase 48 units/L (7-56); Albumin 1.8 g/dL (3.9-5); Blood Urea Nitrogen 10 mg/dL (9-20); Calcium 7.8 mg/dL (8.4-10.2); Hemolysis Index 0
[2022-03-07 08:51] LABS: Blood Urea Nitrogen 10 mg/dL (9-20); Calcium 7.5 mg/dL (8.4-10.2); Hemolysis Index 1
[2022-03-07] MEDS: IPRATROPIUM/ALBUTEROL SULFATE 3 ML AMPUL.NEB IH SCH ×3 (08:51→15:49)
[2022-03-07 08:53] LABS: BUN/Creatinine Ratio 20; BUN/Creatinine Ratio 25
[2022-03-07] MEDS: cefTRIAXone/NS 2 GM/100 ML 2 GM/100 ML BAG IV SCH (09:16)
[2022-03-07] MEDS: oxyCODONE /ACETAMINOPHEN 5-325MG TAB PO PRN (09:24)
[2022-03-07] MEDS: guaiFENesin 100 MG/5 ML ORAL LIQD PO PRN (09:27)
--- NOTE | 2022-03-07 10:30 | Progress Note ---
Assessment and Plan Assessment and plan: #Bilateral pneumonia secondary to possible gram-negative and atypical bacteria #Acute hypoxic respiratory failure - etiology: Bilateral pneumonia - baseline oxygen requirements: Room air - supplemental oxygen: 2-3 L nasal cannula - Continue protocol: continue pulse oximetry, wean oxygen as tolerated, ordered incentive spirometry and educated patient on how to use it and its importance. Continue IV methylprednisolone 60 mg every 6 hours, azithromycin 500 mg daily, Rocephin 1 mg daily. Continue DuoNebs. Pending coronavirus PCR and sputum culture and HIV screening. Elevated acute phase reactants: Ferritin 2160, LDH 551, CRP 15.2. Concern for possible undiagnosed HIV infection; if this is the case, patient will be started on Bactrim. - continue to monitor #Left renal mass CT abdomen and pelvis without contrast (03/06/2022) revealing masslike density within the interpolar region of the left kidney measuring up to 3.4 cm that may represent a prominent column of Joshua. The spherical shape is of concern and renal ultrasound has been recommended. Also revealing prominent 1.9 cm stone within the left collecting duct causing moderate hydronephrosis. Pending renal ultrasound #Pulmonary nodule Measuring 15 mm with solid characteristics. Monitor with repeat CT chest at 3 months, PET/CT, or tissue sampling. #Moderate protein caloric malnutrition Albumin 1.8 Starting dietary supplementation #Advanced care planning -Disease education conducted, care plan discussed, diagnoses discussed, prognosis discussed, and patient acknowledges understanding with care plan -Time: +30 min Disposition Plan: Continue medical management Total Time Spent with Patient (Minutes): 45 minutes History Interval history: No acute events overnight. Hospitalist Physical - Constitutional Vitals: Temp Pulse Resp BP Pulse Ox 98.3 F 103 H 20 121/75 93 03/07/22 04:48 03/07/22 08:51 03/07/22 08:51 03/07/22 04:48 03/07/22 08:51 General appearance: Present: mild distress, well-nourished - EENT Eyes: Present: PERRL, EOM intact ENT: hearing intact, clear oral mucosa, dentition normal - Neck Neck: Present: supple, normal ROM - Respiratory Respiratory effort: normal Respiratory: bilateral: diminished (On 2 L nasal cannula) - Cardiovascular Rhythm: regular Heart Sounds: Present: S1 & S2 - Extremities Extremities: no ischemia, pulses intact, pulses symmetrical, No edema, normal temperature, normal color Peripheral Pulses: within normal limits - Abdominal General gastrointestinal: soft, non-tender, non-distended, normal bowel sounds - Integumentary Integumentary: Present: clear, warm, dry - Psychiatric Psychiatric: appropriate mood/affect, memory intact, cooperative - Neurologic Neurologic: CNII-XII intact - Allied Health Allied health notes reviewed: nursing HEART Score - HEART Score Troponin: Troponin T < 0.010 ng/mL (0.00-0.029) 03/05/22 12:22 Results - Labs CBC & Chem 7: 03/07/22 08:02 03/07/22 08:02 Labs: Laboratory Last Values WBC 3.9 K/mm3 (4.5-11.0) L 03/07/22 08:02 RBC 3.24 M/mm3 (3.65-5.03) L 03/07/22 08:02 Hgb 9.2 gm/dl (11.8-15.2) L 03/07/22 08:02 Hct 26.8 % (35.5-45.6) L 03/07/22 08:02 MCV 83 fl (84-94) L 03/07/22 08:02 MCH 28 pg (28-32) 03/07/22 08:02 MCHC 34 % (32-34) 03/07/22 08:02 RDW 14.3 % (13.2-15.2) 03/07/22 08:02 Plt Count 156 K/mm3 (140-440) 03/07/22 08:02 Add Manual Diff Complete 03/05/22 12: Total Counted 100 03/05/22 12: Seg Neuts % (Manual) 73.0 % (40.0-70.0) H 03/05/22 12:22 Band Neutrophils % 0 % 03/05/22 12:22 Lymphocytes % (Manual) 16.0 % (13.4-35.0) 03/05/22 12:22 Reactive Lymphs % (Man) 1.0 % 03/05/22 12:22 Monocytes % (Manual) 0 % (0.0-7.3) 03/05/22 12:22 Eosinophils % (Manual) 0 % (0.0-4.3) 03/05/22 12: Basophils % (Manual) 0 % (0.0-1.8) 03/05/22 12:22 Metamyelocytes % 3.0 % 03/05/22 12:22 Myelocytes % 7.0 % 03/05/22 12:22 Promyelocytes % 0 % 03/05/22 12:22 Blast Cells % 0 % 03/05/22 12:22 Nucleated RBC % Not Reportable 03/05/22 12: Seg Neutrophils # Man 3.1 K/mm3 (1.8-7.7) 03/05/22 12:22 Band Neutrophils # 0.0 K/mm3 03/05/22 12:22 Lymphocytes # (Manual) 0.7 K/mm3 (1.2-5.4) L 03/05/22 12:22 Abs React Lymphs (Man) 0.0 K/mm3 03/05/22 12:22 Monocytes # (Manual) 0.0 K/mm3 (0.0-0.8) 03/05/22 12:22 Eosinophils # (Manual) 0.0 K/mm3 (0.0-0.4) 03/05/22 12:22 Basophils # (Manual) 0.0 K/mm3 (0.0-0.1) 03/05/22 12:22 Metamyelocytes # 0.1 K/mm3 03/05/22 12:22 Myelocytes # 0.3 K/mm3 03/05/22 12:22 Promyelocytes # 0.0 K/mm3 03/05/22 12:22 Blast Cells # 0.0 K/mm3 03/05/22 12:22 WBC Morphology Not Reportable 03/05/22 12:22 Hypersegmented Neuts Not Reportable 03/05/22 12:22 Hyposegmented Neuts Not Reportable 03/05/22 12:22 Hypogranular Neuts Not Reportable 03/05/22 12:22 Smudge Cells Not Reportable 03/05/22 12:22 Toxic Granulation Not Reportable 03/05/22 12:22 Toxic Vacuolation Not Reportable 03/05/22 12:22 Dohle Bodies Not Reportable 03/05/22 12:22 Pelger-Huet Anomaly Not Reportable 03/05/22 12:22 Laura Rods Not Reportable 03/05/22 12:22 Platelet Estimate Consistent w auto 03/05/22 12:22 Clumped Platelets Not Reportable 03/05/22 12:22 Plt Clumps, EDTA Not Reportable 03/05/22 12:22 Large Platelets Not Reportable 03/05/22 12:22 Giant Platelets Not Reportable 03/05/22 12:22 Platelet Satelliting Not Reportable 03/05/22 12:22 Plt Morphology Comment Not Reportable 03/05/22 12:22 RBC Morphology Not Reportable 03/05/22 12:22 Dimorphic RBCs Not Reportable 03/05/22 12:22 Polychromasia Few 03/05/22 12:22 Hypochromasia Not Reportable 03/05/22 12:22 Poikilocytosis Not Reportable 03/05/22 12:22 Anisocytosis 1+ 03/05/22 12:22 Microcytosis Not Reportable 03/05/22 12:22 Macrocytosis Not Reportable 03/05/22 12:22 Spherocytes Not Reportable 03/05/22 12:22 Pappenheimer Bodies Not Reportable 03/05/22 12:22 Sickle Cells Not Reportable 03/05/22 12:22 Target Cells 1+ 03/05/22 12:22 Tear Drop Cells Not Reportable 03/05/22 12:22 Ovalocytes Not Reportable 03/05/22 12:22 Helmet Cells Not Reportable 03/05/22 12:22 Montelongo-Hurst Bodies Not Reportable 03/05/22 12:22 [place] Rings Not Reportable 03/05/22 12:22 Kasey Cells Not Reportable 03/05/22 12:22 Bite Cells Not Reportable 03/05/22 12:22 Crenated Cell Not Reportable 03/05/22 12:22 Elliptocytes Not Reportable 03/05/22 12:22 Acanthocytes (Spur) Not Reportable 03/05/22 12:22 Rouleaux Not Reportable 03/05/22 12:22 Hemoglobin C Crystals Not Reportable 03/05/22 12:22 Schistocytes Not Reportable 03/05/22 12:22 Malaria parasites Not Reportable 03/05/22 12:22 Nelson Bodies Not Reportable 03/05/22 12:22 Hem Pathologist Commnt No 03/05/22 12:22 PT 15.6 Sec. (12.2-14.9) H 03/05/22 12:22 INR 1.11 (0.87-1.13) 03/05/22 12:22 D-Dimer 1441.90 ng/mlDDU (0-234) H 03/07/22 08:02 Sodium 129 mmol/L (137-145) L 03/07/22 08:02 Sodium 130 mmol/L (137-145) L D 03/07/22 08:02 Potassium 4.0 mmol/L (3.6-5.0) 03/07/22 08:02 Potassium 4.1 mmol/L (3.6-5.0) 03/07/22 08:02 Chloride 96.2 mmol/L (98-107) L 03/07/22 08:02 Chloride 97.6 mmol/L (98-107) L 03/07/22 08:02 Carbon Dioxide 23 mmol/L (22-30) 03/07/22 08:02 Carbon Dioxide 23 mmol/L (22-30) 03/07/22 08:02 Anion Gap 14 mmol/L 03/07/22 08:02 Anion Gap 14 mmol/L 03/07/22 08:02 BUN 10 mg/dL (9-20) 03/07/22 08:02 BUN 10 mg/dL (9-20) 03/07/22 08:02 Creatinine 0.4 mg/dL (0.8-1.3) L 03/07/22 08:02 Creatinine 0.5 mg/dL (0.8-1.3) L 03/07/22 08:02 Estimated GFR > 60 ml/min 03/07/22 08:02 Estimated GFR > 60 ml/min 03/07/22 08:02 BUN/Creatinine Ratio 20 % 03/07/22 08:02 BUN/Creatinine Ratio 25 % 03/07/22 08:02 Glucose 119 mg/dL (75-100) H 03/07/22 08:02 Glucose 122 mg/dL (75-100) H 03/07/22 08:02 Lactic Acid 1.90 mmol/L (0.7-2.0) 03/07/22 08:02 Calcium 7.5 mg/dL (8.4-10.2) L 03/07/22 08:02 Calcium 7.8 mg/dL (8.4-10.2) L 03/07/22 08:02 Ferritin 2161.0 ng/mL (30.0-300.0) H 03/07/22 08:02 Total Bilirubin 0.20 mg/dL (0.1-1.2) 03/07/22 08:02 AST 86 units/L (5-40) H 03/07/22 08:02 ALT 48 units/L (7-56) 03/07/22 08:02 Alkaline Phosphatase 97 units/L (35-129) 03/07/22 08:02 Lactate Dehydrogenase 551 units/L (91-180) H 03/07/22 08:02 Troponin T < 0.010 ng/mL (0.00-0.029) 03/05/22 12:22 C-Reactive Protein 15.20 mg/dL (0.00-1.30) H 03/07/22 08:02 Total Protein 5.8 g/dL (6.3-8.2) L 03/07/22 08:02 Albumin 1.8 g/dL (3.9-5) L 03/07/22 08:02 Albumin/Globulin Ratio 0.5 % 03/07/22 08:02 Urine Color Yellow (Yellow) 03/05/22 13:57 Urine Turbidity Clear (Clear) 03/05/22 13:57 Urine pH 6.0 (5.0-7.0) 03/05/22 13:57 Ur Specific [place] 1.015 (1.003-1.030) 03/05/22 13:57 Urine Protein <15 mg/dl mg/dL (Negative) 03/05/22 13:57 Urine Glucose (UA) Negative mg/dL (Negative) 03/05/22 13:57 Urine Ketones Negative mg/dL (Negative) 03/05/22 13:57 Urine Blood Negative (Negative) 03/05/22 13:57 Urine Nitrite Negative (Negative) 03/05/22 13:57 Urine Bilirubin Negative (Negative) 03/05/22 13:57 Urine Urobilinogen 0.0 mg/dL (<2.0) 03/05/22 13:57 Ur Leukocyte Esterase Negative (Negative) 03/05/22 13:57 Urine WBC (Auto) < 1.0 /HPF (0.0-6.0) 03/05/22 13:57 Urine RBC (Auto) < 1.0 /HPF (0.0-6.0) 03/05/22 13:57 U Epithel Cells (Auto) 1.0 /HPF (0-13.0) 03/05/22 13:57 Microbiology: Microbiology 03/05/22 12:22 Peripheral/Venous Blood Culture - Preliminary NO GROWTH AFTER 24 HOURS 03/05/22 12:22 Peripheral/Venous Blood Culture - Preliminary NO GROWTH AFTER 24 HOURS Leonard/IV: Voiding Method Urinal Active Medications - Current Medications Current Medications: Generic Name Dose Route Start Last Admin Trade Name Freq PRN Reason Stop Dose Admin Acetaminophen 650 mg 03/06/22 19:58 Acetaminophen 325 Mg Tab PO Q4H PRN Pain MILD(1-3)/Fever >100.5/LOPEZ Albuterol/Ipratropium 1 ampul 03/07/22 08:00 03/07/22 08:51 Ipratropium/Albuterol Sulfate 3 Ml Ampul.Neb IH 1 ampul QIDRT MINOO Administration Famotidine 20 mg 03/06/22 22:00 03/07/22 09:17 Famotidine 20 Mg Tab PO 20 mg BID MINOO Administration Guaifenesin 200 mg 03/07/22 09:15 03/07/22 09:27 Guaifenesin 100 Mg/5 Ml Oral Liqd PO 200 mg Q4H PRN Administration Cough Heparin Sodium (Porcine) 5,000 unit 03/06/22 22:00 03/07/22 09:17 Heparin 5,000 Unit/1 Ml Vial SUB-Q 5,000 unit Q12HR MINOO Administration Azithromycin 500 mg in 250 mls @ 250 mls/hr 03/06/22 21:00 03/07/22 02:14 Zithromax/Ns IV 250 mls/hr Q24H MINOO Administration Ceftriaxone Sodium 2 gm in 100 mls @ 200 mls/hr 03/06/22 21:00 03/07/22 09:16 Rocephin/Ns 2 Gm/100 Ml IV 200 mls/hr Q24HR MINOO Administration Protocol Methylprednisolone Sodium Succinate 60 mg 03/06/22 22:00 03/07/22 05:51 Methylprednisolone Sod Succinate 125 Mg/2 Ml Inj IV 60 mg Q8HR MINOO Administration Morphine Sulfate 2 mg 03/06/22 19:58 03/06/22 22:29 Morphine 2 Mg/1 Ml Inj IV 2 mg Q4H PRN Administration Pain, Moderate (4-6) Ondansetron HCl 4 mg 03/06/22 19:58 Ondansetron 4 Mg/2 Ml Inj IV Q8H PRN Nausea And Vomiting Oxycodone/Acetaminophen 1 tab 03/06/22 19:58 03/07/22 09:24 Oxycodone /Acetaminophen 5-325mg Tab PO 1 tab Q6H PRN Administration Pain, Moderate (4-6) Sodium Chloride 10 ml 03/06/22 22:00 03/07/22 09:17 Sodium Chloride 0.9% 10 Ml Flush Syringe IV 10 ml BID MINOO Administration Sodium Chloride 10 ml 03/06/22 19:58 Sodium Chloride 0.9% 10 Ml Flush Syringe IV PRN PRN LINE FLUSH
[2022-03-07 10:31] LABS: Basophils % (Manual) 0 % (0.0-1.8); Eosinophils % (Manual) 0 % (0.0-4.3); Platelet Estimate Consistent w Auto; Target Cells 2+; Total Cells Counted 100
[2022-03-07] MEDS: WATER IV SCH ×3 (12:59→23:55)
[2022-03-07] MEDS: SMX IV SCH ×3 (12:59→23:55)
[2022-03-07] MEDS: DEXTROSE 5% IV SCH ×3 (12:59→23:55)
[2022-03-07] MEDS: TMP IV SCH ×3 (12:59→23:55)
--- NOTE | 2022-03-07 13:59 | Event Note ---
Date: 03/07/22 51 y/o male HIV positive recently discharged from assisted admitted with hypoxemia, acute respiratory failure and abnormal CXR. patient has already left [facility] from the ED before and plans to leave this hospital on Thursday to fly back to [place]. 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
[2022-03-08] MEDS: IPRATROPIUM/ALBUTEROL SULFATE 3 ML AMPUL.NEB IH SCH ×3 (04:47→20:25)
[2022-03-08] MEDS: WATER IV SCH ×3 (05:24→18:36)
[2022-03-08] MEDS: DEXTROSE 5% IV SCH ×3 (05:24→18:36)
[2022-03-08] MEDS: SMX IV SCH ×3 (05:24→18:36)
[2022-03-08] MEDS: oxyCODONE /ACETAMINOPHEN 5-325MG TAB PO PRN (05:24)
[2022-03-08] MEDS: methylPREDNISolone Sod Succinate 125 MG/2 ML INJ IV SCH ×3 (05:24→22:24)
[2022-03-08] MEDS: TMP IV SCH ×3 (05:24→18:36)
--- NOTE | 2022-03-08 08:24 | Cat Scan Report ---
CT chest w con INDICATION / CLINICAL INFORMATION: Evaluate for PJP vs tuberculosis. TECHNIQUE: Axial CT imaging of the chest was obtained with 100 mL Omnipaque 350 IV contrast. Coronal and sagitta l reformatted imaging obtained and reviewed. All CT scans at this location are performed using CT do se reduction for ALARA by means of automated exposure control. COMPARISON: Chest radiograph 03/05/2022 FINDINGS: CT chest with contrast demonstrates grossly normal appearance of the mediastinum and pulmonary lizeth b ilaterally. Heart size is normal. No coronary artery calcification or pericardial effusion is noted. Groundglass opacities are present bilaterally in a pattern typical for atypical pneumonia. There is m ore focal consolidation with air bronchograms in both lower lobes especially on the left. Very small bilateral pleural effusions are present. There is pulmonary nodule within the lingula that is pleural -based, measuring approximately 1.7 cm. No cystic lesion identified. No pneumothorax noted. Imaging of the upper abdomen demonstrates a known large calculus in the left renal pelvis measuring 1 8 mm. Calculus is causing hydronephrosis. Please see separately dictated CT abdomen report from 2021. No acute osseous abnormality noted. IMPRESSION: 1. Bilateral mosaic groundglass opacities are present with more focal consolidation involving both lo wer lobes. Very small bilateral pleural effusions are noted. . The overall appearance is highly sugge stive for atypical pneumonia, with PJP pneumonia within the differential if clinically appropriate.. Signer Name: Indira Recio MD Signed: 03/08/2022 8:20 AM Workstation Name: [id number]
[2022-03-08] MEDS ORDERED: ALBUTEROL 2.5 MG/3 ML NEBU IH PRN (08:34)
[2022-03-08] MEDS: FAMOTIDINE 20 MG TAB PO SCH ×2 (09:25→22:24)
[2022-03-08] MEDS: guaiFENesin 100 MG/5 ML ORAL LIQD PO PRN (09:25)
[2022-03-08] MEDS: cefTRIAXone/NS 2 GM/100 ML 2 GM/100 ML BAG IV SCH (09:25)
[2022-03-08] MEDS: HEPARIN 5,000 UNIT/1 ML VIAL SUB-Q SCH ×2 (09:25→22:25)
[2022-03-08] MEDS: NYSTATIN 500,000 UNIT/5 ML ORAL LIQD PO SCH ×3 (14:05→22:25)
[2022-03-09] MEDS: SMX IV SCH ×4 (01:48→18:11)
[2022-03-09] MEDS: TMP IV SCH ×4 (01:48→18:11)
[2022-03-09] MEDS: WATER IV SCH ×4 (01:48→18:11)
[2022-03-09] MEDS: DEXTROSE 5% IV SCH ×4 (01:48→18:11)
[2022-03-09] MEDS: methylPREDNISolone Sod Succinate 125 MG/2 ML INJ IV SCH ×3 (05:42→21:25)
[2022-03-09 06:22] LABS: Hematocrit 29.3 % (35.5-45.6); Hemoglobin 9.5 gm/dl (11.8-15.2); Mean Corpuscular HGB Conc 33 % (32-34); Mean Corpuscular Volume 83 fl (84-94); Platelet Count 180 K/mm3 (140-440); Red Blood Count 3.52 M/mm3 (3.65-5.03)
[2022-03-09 06:42] LABS: Blood Urea Nitrogen 14 mg/dL (9-20); Calcium 8.3 mg/dL (8.4-10.2); Hemolysis Index 2
[2022-03-09 06:44] LABS: BUN/Creatinine Ratio 35
--- NOTE | 2022-03-09 07:53 | Progress Note ---
Assessment and Plan Assessment and plan: #Bilateral pneumonia secondary to possible gram-negative and atypical bacteria #Acute hypoxic respiratory failure - etiology: Bilateral pneumonia - baseline oxygen requirements: Room air - supplemental oxygen: 2-3 L nasal cannula - Continue protocol: continue pulse oximetry, wean oxygen as tolerated, ordered incentive spirometry and educated patient on how to use it and its importance. Continue IV methylprednisolone 60 mg every 6 hours, azithromycin 500 mg daily, Rocephin 1 mg daily. Continue DuoNebs. Unremarkable coronavirus PCR. Elevated acute phase reactants: Ferritin 2160, LDH 551, CRP 15.2. 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 St arting p.o. azithromycin 500 mg every 48 hours for MAC prophylaxis. Infectious disease consulted; pending recs Pulmonology consulted; appreciate recs CT chest without contrast revealing atypical infection (and PJP is included in the differential). Placing under airborne isolation and having patient placed in negative pressure room. Pending QuantiFERON gold and sputum culture. #Neutropenia - WBC decreased from 4.3--> 3.9--> 0.6 - Hematology consulted; pending recs #Left renal mass CT abdomen and pelvis without contrast (03/06/2022) revealing masslike density within the interpolar region of the left kidney measuring up to 3.4 cm that may represent a prominent column of Joshua. The spherical shape is of concern and renal ultrasound has been recommended. Also revealing prominent 1.9 cm stone within the left collecting duct causing moderate hydronephrosis. #Pulmonary nodule Measuring 15 mm with solid characteristics. Monitor with repeat CT chest at 3 months, PET/CT, or tissue sampling. #Moderate protein caloric malnutrition Albumin 1.8 Continue dietary supplementation #Advanced care planning -Disease education conducted, care plan discussed, diagnoses discussed, prognosis discussed, and patient acknowledges understanding with care plan -Time: +30 min Disposition Plan: Continue medical management Total Time Spent with Patient (Minutes): 45 min History Interval history: No acute events overnight. Hospitalist Physical - Constitutional Vitals: Temp Pulse Resp BP Pulse Ox 97.8 F 74 16 136/84 93 03/08/22 20:54 03/08/22 20:54 03/08/22 20:54 03/08/22 20:54 03/08/22 22:00 General appearance: Present: no acute distress, well-nourished - EENT Eyes: Present: PERRL, EOM intact ENT: hearing intact, clear oral mucosa, dentition normal - Neck Neck: Present: supple, normal ROM - Respiratory Respiratory effort: normal Respiratory: bilateral: diminished (on 3L nasal cannula) - Cardiovascular Rhythm: regular Heart Sounds: Present: S1 & S2 - Extremities Extremities: no ischemia, pulses intact, pulses symmetrical, No edema, normal temperature, normal color, Full ROM Peripheral Pulses: within normal limits - Abdominal General gastrointestinal: soft, non-tender, non-distended, normal bowel sounds - Integumentary Integumentary: Present: clear, warm, dry - Psychiatric Psychiatric: appropriate mood/affect, memory intact, other (refusing lab draws) - Neurologic Neurologic: CNII-XII intact, moves all extremities - Allied Health Allied health notes reviewed: nursing HEART Score - HEART Score Troponin: Troponin T < 0.010 ng/mL (0.00-0.029) 03/05/22 12:22 Results - Labs CBC & Chem 7: 03/09/22 05:58 03/09/22 05:58 Labs: Laboratory Last Values WBC 0.6 K/mm3 (4.5-11.0) L* 03/09/22 05:58 RBC 3.52 M/mm3 (3.65-5.03) L 03/09/22 05:58 Hgb 9.5 gm/dl (11.8-15.2) L 03/09/22 05:58 Hct 29.3 % (35.5-45.6) L 03/09/22 05:58 MCV 83 fl (84-94) L 03/09/22 05:58 MCH 27 pg (28-32) L 03/09/22 05:58 MCHC 33 % (32-34) 03/09/22 05:58 RDW 15.0 % (13.2-15.2) 03/09/22 05:58 Plt Count 180 K/mm3 (140-440) 03/09/22 05:58 Carson % (Auto) Analytic Programmer 03/09/22 05:58 Add Manual Diff Complete 03/07/22 08:02 Total Counted 100 03/07/22 08:02 Seg Neuts % (Manual) 69.0 % (40.0-70.0) 03/07/22 08:02 Band Neutrophils % 0 % 03/07/22 08:02 Lymphocytes % (Manual) 27.0 % (13.4-35.0) 03/07/22 08:02 Reactive Lymphs % (Man) 0 % 03/07/22 08:02 Monocytes % (Manual) 4.0 % (0.0-7.3) 03/07/22 08:02 Eosinophils % (Manual) 0 % (0.0-4.3) 03/07/22 08:02 Basophils % (Manual) 0 % (0.0-1.8) 03/07/22 08:02 Metamyelocytes % 0 % 03/07/22 08:02 Myelocytes % 0 % 03/07/22 08:02 Promyelocytes % 0 % 03/07/22 08:02 Blast Cells % 0 % 03/07/22 08:02 Nucleated RBC % Not Reportable 03/07/22 08:02 Seg Neutrophils # Man 2.7 K/mm3 (1.8-7.7) 03/07/22 08:02 Band Neutrophils # 0.0 K/mm3 03/07/22 08:02 Lymphocytes # (Manual) 1.1 K/mm3 (1.2-5.4) L 03/07/22 08:02 Abs React Lymphs (Man) 0.0 K/mm3 03/07/22 08:02 Monocytes # (Manual) 0.2 K/mm3 (0.0-0.8) 03/07/22 08:02 Eosinophils # (Manual) 0.0 K/mm3 (0.0-0.4) 03/07/22 08:02 Basophils # (Manual) 0.0 K/mm3 (0.0-0.1) 03/07/22 08:02 Metamyelocytes # 0.0 K/mm3 03/07/22 08:02 Myelocytes # 0.0 K/mm3 03/07/22 08:02 Promyelocytes # 0.0 K/mm3 03/07/22 08:02 Blast Cells # 0.0 K/mm3 03/07/22 08:02 WBC Morphology Not Reportable 03/07/22 08:02 Hypersegmented Neuts Not Reportable 03/07/22 08:02 Hyposegmented Neuts Not Reportable 03/07/22 08:02 Hypogranular Neuts Not Reportable 03/07/22 08:02 Smudge Cells Not Reportable 03/07/22 08:02 Toxic Granulation Not Reportable 03/07/22 08:02 Toxic Vacuolation Not Reportable 03/07/22 08:02 Dohle Bodies Not Reportable 03/07/22 08:02 Pelger-Huet Anomaly Not Reportable 03/07/22 08:02 Laura Rods Not Reportable 03/07/22 08:02 Platelet Estimate Consistent w auto 03/07/22 08:02 Clumped Platelets Not Reportable 03/07/22 08:02 Plt Clumps, EDTA Not Reportable 03/07/22 08:02 Large Platelets Not Reportable 03/07/22 08:02 Giant Platelets Not Reportable 03/07/22 08:02 Platelet Satelliting Not Reportable 03/07/22 08:02 Plt Morphology Comment Not Reportable 03/07/22 08:02 RBC Morphology Not Reportable 03/07/22 08:02 Dimorphic RBCs Not Reportable 03/07/22 08:02 Polychromasia Few 03/07/22 08:02 Hypochromasia Not Reportable 03/07/22 08:02 Poikilocytosis Not Reportable 03/07/22 08:02 Anisocytosis Not Reportable 03/07/22 08:02 Microcytosis Not Reportable 03/07/22 08:02 Macrocytosis Not Reportable 03/07/22 08:02 Spherocytes Not Reportable 03/07/22 08:02 Pappenheimer Bodies Not Reportable 03/07/22 08:02 Sickle Cells Not Reportable 03/07/22 08:02 Target Cells 2+ 03/07/22 08:02 Tear Drop Cells Not Reportable 03/07/22 08:02 Ovalocytes Not Reportable 03/07/22 08:02 Helmet Cells Not Reportable 03/07/22 08:02 [place] Bodies Not Reportable 03/07/22 08:02 [place] Rings Not Reportable 03/07/22 08:02 Mcgrew Cells Not Reportable 03/07/22 08:02 Bite Cells Not Reportable 03/07/22 08:02 Crenated Cell Not Reportable 03/07/22 08:02 Elliptocytes Not Reportable 03/07/22 08:02 Acanthocytes (Spur) Not Reportable 03/07/22 08:02 Rouleaux Not Reportable 03/07/22 08:02 Hemoglobin C Crystals Not Reportable 03/07/22 08:02 Schistocytes Not Reportable 03/07/22 08:02 Malaria parasites Not Reportable 03/07/22 08:02 Nelson Bodies Not Reportable 03/07/22 08:02 Hem Pathologist Commnt No 03/07/22 08:02 PT 15.6 Sec. (12.2-14.9) H 03/05/22 12:22 INR 1.11 (0.87-1.13) 03/05/22 12:22 D-Dimer 1441.90 ng/mlDDU (0-234) H 03/07/22 08:02 Sodium 134 mmol/L (137-145) L 03/09/22 05:58 Potassium 4.4 mmol/L (3.6-5.0) 03/09/22 05:58 Chloride 98.0 mmol/L (98-107) 03/09/22 05:58 Carbon Dioxide 24 mmol/L (22-30) 03/09/22 05:58 Anion Gap 16 mmol/L 03/09/22 05:58 BUN 14 mg/dL (9-20) 03/09/22 05:58 Creatinine 0.4 mg/dL (0.8-1.3) L 03/09/22 05:58 Estimated GFR > 60 ml/min 03/09/22 05:58 BUN/Creatinine Ratio 35 % 03/09/22 05:58 Glucose 122 mg/dL (75-100) H 03/09/22 05:58 Lactic Acid 1.90 mmol/L (0.7-2.0) 03/07/22 08:02 Calcium 8.3 mg/dL (8.4-10.2) L 03/09/22 05:58 Ferritin 2161.0 ng/mL (30.0-300.0) H 03/07/22 08:02 Total Bilirubin 0.20 mg/dL (0.1-1.2) 03/07/22 08:02 AST 86 units/L (5-40) H 03/07/22 08:02 ALT 48 units/L (7-56) 03/07/22 08:02 Alkaline Phosphatase 97 units/L (35-129) 03/07/22 08:02 Lactate Dehydrogenase 551 units/L (91-180) H 03/07/22 08:02 Troponin T < 0.010 ng/mL (0.00-0.029) 03/05/22 12:22 C-Reactive Protein 15.20 mg/dL (0.00-1.30) H 03/07/22 08:02 Total Protein 5.8 g/dL (6.3-8.2) L 03/07/22 08:02 Albumin 1.8 g/dL (3.9-5) L 03/07/22 08:02 Albumin/Globulin Ratio 0.5 % 03/07/22 08:02 Procalcitonin 0.34 ng/mL (<0.15) 03/07/22 08:02 Urine Color Yellow (Yellow) 03/05/22 13:57 Urine Turbidity Clear (Clear) 03/05/22 13:57 Urine pH 6.0 (5.0-7.0) 03/05/22 13:57 Ur Specific [place] 1.015 (1.003-1.030) 03/05/22 13:57 Urine Protein <15 mg/dl mg/dL (Negative) 03/05/22 13:57 Urine Glucose (UA) Negative mg/dL (Negative) 03/05/22 13:57 Urine Ketones Negative mg/dL (Negative) 03/05/22 13:57 Urine Blood Negative (Negative) 03/05/22 13:57 Urine Nitrite Negative (Negative) 03/05/22 13:57 Urine Bilirubin Negative (Negative) 03/05/22 13:57 Urine Urobilinogen 0.0 mg/dL (<2.0) 03/05/22 13:57 Ur Leukocyte Esterase Negative (Negative) 03/05/22 13:57 Urine WBC (Auto) < 1.0 /HPF (0.0-6.0) 03/05/22 13:57 Urine RBC (Auto) < 1.0 /HPF (0.0-6.0) 03/05/22 13:57 U Epithel Cells (Auto) 1.0 /HPF (0-13.0) 03/05/22 13:57 Nasal Screen MRSA (PCR) Negative (Negative) 03/07/22 06:25 Coronavirus (PCR) Negative (Negative) 03/07/22 09:25 HIV 1&2 Antibody Rapid Reactive (Non React) 03/07/22 08:35 HIV P24 Antigen Non react (Non React) 03/07/22 08:35 Microbiology: Microbiology 03/05/22 12:22 Peripheral/Venous Blood Culture - Preliminary NO GROWTH AFTER 72 HOURS 03/05/22 12:22 Peripheral/Venous Blood Culture - Preliminary NO GROWTH AFTER 72 HOURS Leonard/IV: Voiding Method Urinal Active Medications - Current Medications Current Medications: Generic Name Dose Route Start Last Admin Trade Name Freq PRN Reason Stop Dose Admin Acetaminophen 650 mg 03/06/22 19:58 Acetaminophen 325 Mg Tab PO Q4H PRN Pain MILD(1-3)/Fever >100.5/LOPEZ Albuterol 2.5 mg 03/08/22 08:34 Albuterol 2.5 Mg/3 Ml Nebu IH Q4HRT PRN Shortness Of Breath Albuterol/Ipratropium 1 ampul 03/08/22 20:00 03/08/22 20:25 Ipratropium/Albuterol Sulfate 3 Ml Ampul.Neb IH 1 ampul BIDRT MINOO Administration Azithromycin 600 mg 03/10/22 12:00 Azithromycin 600 Mg Tab PO 2XW MINOO Famotidine 20 mg 03/06/22 22:00 03/08/22 22:24 Famotidine 20 Mg Tab PO 20 mg BID MINOO Administration Guaifenesin 200 mg 03/07/22 09:15 03/08/22 09:25 Guaifenesin 100 Mg/5 Ml Oral Liqd PO 200 mg Q4H PRN Administration Cough Heparin Sodium (Porcine) 5,000 unit 03/06/22 22:00 03/08/22 22:25 Heparin 5,000 Unit/1 Ml Vial SUB-Q 5,000 unit Q12HR MINOO Administration Ceftriaxone Sodium 2 gm in 100 mls @ 200 mls/hr 03/06/22 21:00 03/08/22 09:25 Rocephin/Ns 2 Gm/100 Ml IV 200 mls/hr Q24HR MINOO Administration Protocol Trimethoprim/Sulfamethoxazole 512.5 mls @ 350 mls/hr 03/07/22 13:00 03/09/22 06:44 200 mg/ Dextrose IV 350 mls/hr Q6HR MINOO Administration Protocol Methylprednisolone Sodium Succinate 60 mg 03/06/22 22:00 03/09/22 05:42 Methylprednisolone Sod Succinate 125 Mg/2 Ml Inj IV 60 mg Q8HR MINOO Administration Morphine Sulfate 2 mg 03/06/22 19:58 03/06/22 22:29 Morphine 2 Mg/1 Ml Inj IV 2 mg Q4H PRN Administration Pain, Moderate (4-6) Nystatin 100,000 unit 03/08/22 14:00 03/08/22 22:25 Nystatin 500,000 Unit/5 Ml Oral Liqd PO 100,000 unit QID MINOO Administration Ondansetron HCl 4 mg 03/06/22 19:58 Ondansetron 4 Mg/2 Ml Inj IV Q8H PRN Nausea And Vomiting Oxycodone/Acetaminophen 1 tab 03/06/22 19:58 03/08/22 05:24 Oxycodone /Acetaminophen 5-325mg Tab PO 1 tab Q6H PRN Administration Pain, Moderate (4-6) Sodium Chloride 10 ml 03/06/22 22:00 03/08/22 22:25 Sodium Chloride 0.9% 10 Ml Flush Syringe IV 10 ml BID MINOO Administration Sodium Chloride 10 ml 03/06/22 19:58 Sodium Chloride 0.9% 10 Ml Flush Syringe IV PRN PRN LINE FLUSH Nutrition/Malnutrition Assess - Dietary Evaluation Nutrition/Malnutrition Findings: Nutrition Notes Start: 03/07/22 13:41 Freq: Status: Active Protocol: Document 03/07/22 13:41 MARK (Rec: 03/07/22 15:19 MARK [id number]) Nutrition Notes Need for Assessment generated from: MD Order,special procedure technologist,MST,Low BMI Initial or Follow up Assessment Current Diagnosis COPD,Decubitus(Pressure Ulcer) ,Respiratory Failure, Malnutrition Other Pertinent Diagnosis Pneumonia, Pulmonary Nodule, R -Renal Mass, HIV/AIDS. Current Diet Regular Diet (since B 03/07), D Suppl (since L 03/07). Labs/Tests 03/07: Na 130, Cl 97.6, Crea 0 .4, Glu 122, Ca 7.5. Pertinent Medications 03/07: Nutritionally unremarkable. 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 Pt is on PO diet, no reports on Pt's PO intake of meals at the time, will assess at F/U. I will prescribe dietary supplements to compensate for possible poor or insufficient PO intake of meals during LOS. Pt is on Nasal Cannula, O2 saturation @ 93%, according to Physical Assessment History notes. Pt presents a sacrum ulcer stage II as sign of concern for skin risk at the time, according to Physical Assessment History notes and Admission documents. I will prescribe dietary supplements to support wound healing processes during LOS. Pt's Low BMI seems to correspond to a natural body composition, not related to a sudden loss of body weight, but can be associated with chronic malnutrition, since some signs of concern, like newly diagnosed HIV/AIDS and Renal and Pulmonary nodules, were mentioned in the Physical Assessment History and the Progress notes. Percent of energy/protein needs met: Prescribed Regular Diet provides for energy/protein needs (2,289 Kcal/89 g) during LOS; additionally, Dietary Supplements will compensate for possible poor or insufficient PO intake of meals and support wound healing processes with 670 Kcal and 53 g of protein. Burn Absent Trauma Absent GI Symptoms None Food Allergy No Skin Integrity/Comment Sacrum Ulcer Stage II. Minimum of two criteria No Fluid Accumulation N/A Reduced Energy Auditor Strength N/A (non-severe) Protein-Calorie Malnutrition N\A #2 Nutrition Diagnosis Underweight Comments: Pt's Low BMI seems to correspond to a natural body composition, not related to a sudden loss of body weight, but can be associated with chronic malnutrition, since some signs of concern, like newly diagnosed HIV/AIDS and Renal and Pulmonary nodules, were mentioned in the Physical Assessment History and the Progress notes. Etiology Possibly associated with newly diagnosed HIV/AIDS and Renal and Pulmonary nodules. As Evidenced by Signs and Symptoms BMI: 16.0 Kg/m2. #1 Nutrition Diagnosis Increased nutrient needs ( specify in comment below) Comments: Protein to support wound healing processes. Etiology Uncertain, possibly associated with inmobility. As Evidenced by Signs and Symptoms Pt presents a sacrum ulcer stage II as sign of concern for skin risk at the time, according to Physical Assessment History notes and Admission documents. Is patient on ventilator? No Is Patient Ambulatory and/or Out of Bed Yes REE-([place]-St. Jeor-ambulatory/OOB) [ 1913.444 [id number]] Kcal/Kg value to use for calculation 24 Approximate Energy Requirements Using 1327 kcal/Kg Calculation Used for Recommendations Kcal/kg Additional Notes Protein: 1.2-1.5 g/Kg ABW; 66- 83 g/day. Fluids: 1 ml/Kcal, or as per MD. Nutrition Intervention Change Diet Order: Continue Regular Diet as tolerated. Add Supplement/Snack (indicate name/kcal Start 8 fl oz Ensure High /protein ) Protein; TID. Start 28.8g pkt Luigi; BID. Provides kCal: 670 Provides Protein (gm) 53 Goal #1 Support, through dietary supplementation, wound healing processes during LOS. Goal #2 Compensate, through dietary supplementation, for possible poor or insufficient PO intake of meals during LOS. Goal #3 Adjust the dietary intervention to better serve Pt's needs and clinical conditions during LOS. Follow-Up By: 03/14/22 Additional Comments Continue monitoring food tolerance, %PO intake of meals , dietary supplements, and BM.
[2022-03-09] MEDS: IPRATROPIUM/ALBUTEROL SULFATE 3 ML AMPUL.NEB IH SCH ×2 (08:54→21:09)
[2022-03-09] MEDS: cefTRIAXone/NS 2 GM/100 ML 2 GM/100 ML BAG IV SCH (09:03)
[2022-03-09] MEDS: HEPARIN 5,000 UNIT/1 ML VIAL SUB-Q SCH ×2 (09:04→21:25)
[2022-03-09] MEDS: FAMOTIDINE 20 MG TAB PO SCH ×2 (09:04→21:26)
[2022-03-09] MEDS: NYSTATIN 500,000 UNIT/5 ML ORAL LIQD PO SCH ×4 (09:04→21:25)
[2022-03-09] MEDS ORDERED: AZITHROMYCIN 250 MG TAB PO SCH (10:00)
[2022-03-09 16:30] LABS: Basophils % (Manual) 0 % (0.0-1.8); Monocytes % (Manual) 0 % (0.0-7.3); Total Cells Counted 25
[2022-03-09 16:31] LABS: Platelet Estimate Consistent w Auto; Target Cells 2+
[2022-03-10] MEDS: DEXTROSE 5% IV SCH ×2 (00:13→06:02)
[2022-03-10] MEDS: WATER IV SCH ×2 (00:13→06:02)
[2022-03-10] MEDS: SMX IV SCH ×2 (00:13→06:02)
[2022-03-10] MEDS: TMP IV SCH ×2 (00:13→06:02)
[2022-03-10] MEDS: methylPREDNISolone Sod Succinate 125 MG/2 ML INJ IV SCH (06:02)
[2022-03-10 08:06] VITALS: BP 127/86
[2022-03-10] MEDS: IPRATROPIUM/ALBUTEROL SULFATE 3 ML AMPUL.NEB IH SCH (08:20)
--- NOTE | 2022-03-10 09:46 | Hem/Onc Consultation ---
History of Present Illness - Reason for Consult Consult date: 03/10/22 HIV/AIDs - History of Present Illness Heme Consult Note Seen via televisit CPT 30099 Dx HIV This is a 51yo male patient who presented to [facility] ED from [facility], hypotensive, tachycardic and febrile. Found to be HIV positive, with hypoxemia, acute respiratory failure and abnormal CXR. Reports of patient leaving AMA from the ED 3 days ago and plans to leave this hospital today to fly back to [place]. Concern for PJP, given his positive HIV status. Started on empiric therapy for PJP now; pending ID recommendations. CT chest without contrast revealing atypical infection (and PJP is included in the differential). Pending QuantiFERON gold and sputum culture. Pulmonary consulted. CT abdomen and pelvis without contrast (03/06/2022) revealing masslike density within the interpolar region of the left kidney measuring up to 3.4 cm that may represent a prominent column of Joshua. The spherical shape is of concern and renal ultrasound has been recommended. Also revealing prominent 1.9 cm stone within the left collecting duct causing moderate hydronephrosis. Hematology was consulted for evaluation of HIV/AIDs. DATA REVIEWED BELOW IMPRESSION: Severe neutropenia and anemia, likely secondary to HIV/AIDs infection PJP Rule out hepatitis PLAN: Labs to include CD4 count, HTLV antibody, hepatitis screen, retic, iron studies Recommend BMbx Neupogen for severe neutropenia Follow ID recommendations Laboratory Last Values WBC 0.6 K/mm3 (4.5-11.0) L* 03/09/22 05:58 Hgb 9.5 gm/dl (11.8-15.2) L 03/09/22 05:58 Hct 29.3 % (35.5-45.6) L 03/09/22 05:58 MCV 83 fl (84-94) L 03/09/22 05:58 Plt Count 180 K/mm3 (140-440) 03/09/22 05:58 Seg Neuts % (Manual) 76.0 % (40.0-70.0) H 03/09/22 05:58 Lymphocytes % (Manual) 12.0 % (13.4-35.0) L 03/09/22 05:58 Eosinophils % (Manual) 8.0 % (0.0-4.3) H 03/09/22 05:58 Seg Neutrophils # Man 0.5 K/mm3 (1.8-7.7) L 03/09/22 05:58 Lymphocytes # (Manual) 0.1 K/mm3 (1.2-5.4) L 03/09/22 05:58 PT 15.6 Sec. (12.2-14.9) H 03/05/22 12:22 INR 1.11 (0.87-1.13) 03/05/22 12:22 D-Dimer 1441.90 ng/mlDDU (0-234) H 03/07/22 08:02 Creatinine 0.4 mg/dL (0.8-1.3) L 03/09/22 05:58 Ferritin 2161.0 ng/mL (30.0-300.0) H 03/07/22 08:02 Total Bilirubin 0.20 mg/dL (0.1-1.2) 03/07/22 08:02 AST 86 units/L (5-40) H 03/07/22 08:02 ALT 48 units/L (7-56) 03/07/22 08:02 Alkaline Phosphatase 97 units/L (35-129) 03/07/22 08:02 Lactate Dehydrogenase 551 units/L (91-180) H 03/07/22 08:02 Nasal Screen MRSA (PCR) Negative (Negative) 03/07/22 06:25 Coronavirus (PCR) Negative (Negative) 03/07/22 09:25 HIV 1&2 Antibody Rapid Reactive (Non React) 03/07/22 08:35 HIV P24 Antigen Non react (Non React) 03/07/22 08:35 Past History Past Medical History: COPD, other (COPD) Past Surgical History: No surgical history, Other (Poor historian) Social history: lives with family, full code Family history: hypertension Medications and Allergies Allergies Allergy/AdvReac Type Severity Reaction Status Date / Time No Known Allergies Allergy Unverified 03/03/22 10:25 Home Medications Medication Instructions Recorded Confirmed Last Taken Type Doxycycline Monohydrate 100 mg PO BID 7 Days #14 03/03/22 03/07/22 Unknown Rx Active Meds: Active Medications Acetaminophen (Acetaminophen 325 Mg Tab) 650 mg PO Q4H PRN PRN Reason: Pain MILD(1-3)/Fever >100.5/LOPEZ Albuterol (Albuterol 2.5 Mg/3 Ml Nebu) 2.5 mg IH Q4HRT PRN PRN Reason: Shortness Of Breath Albuterol/Ipratropium (Ipratropium/Albuterol Sulfate 3 Ml Ampul.Neb) 1 ampul IH BIDRT [facility] Last Admin: 03/10/22 08:20 Dose: 1 ampul Azithromycin (Azithromycin 600 Mg Tab) 600 mg PO 2XW MINOO Famotidine (Famotidine 20 Mg Tab) 20 mg PO BID [facility] Last Admin: 03/09/22 21:26 Dose: 20 mg Guaifenesin (Guaifenesin 100 Mg/5 Ml Oral Liqd) 200 mg PO Q4H PRN PRN Reason: Cough Last Admin: 03/08/22 09:25 Dose: 200 mg Heparin Sodium (Porcine) (Heparin 5,000 Unit/1 Ml Vial) 5,000 unit SUB-Q Q12HR [facility] Last Admin: 03/09/22 21:25 Dose: 5,000 unit Ceftriaxone Sodium (Rocephin/Ns 2 Gm/100 Ml) 2 gm in 100 mls @ 200 mls/hr IV Q24HR [facility]; Protocol Last Admin: 03/09/22 09:03 Dose: 200 mls/hr Trimethoprim/Sulfamethoxazole (200 mg/ Dextrose) 512.5 mls @ 350 mls/hr IV Q6HR [facility]; Protocol Last Admin: 03/10/22 06:02 Dose: 350 mls/hr Methylprednisolone Sodium Succinate (Methylprednisolone Sod Succinate 125 Mg/2 Ml Inj) 60 mg IV Q8HR [facility] Last Admin: 03/10/22 06:02 Dose: 60 mg Morphine Sulfate (Morphine 2 Mg/1 Ml Inj) 2 mg IV Q4H PRN PRN Reason: Pain, Moderate (4-6) Last Admin: 03/06/22 22:29 Dose: 2 mg Nystatin (Nystatin 500,000 Unit/5 Ml Oral Liqd) 500,000 unit PO QID [facility] Last Admin: 03/09/22 21:25 Dose: 500,000 unit Ondansetron HCl (Ondansetron 4 Mg/2 Ml Inj) 4 mg IV Q8H PRN PRN Reason: Nausea And Vomiting Oxycodone/Acetaminophen (Oxycodone /Acetaminophen 5-325mg Tab) 1 tab PO Q6H PRN PRN Reason: Pain, Moderate (4-6) Last Admin: 03/08/22 05:24 Dose: 1 tab Sodium Chloride (Sodium Chloride 0.9% 10 Ml Flush Syringe) 10 ml IV BID MINOO Last Admin: 03/09/22 21:26 Dose: 10 ml Sodium Chloride (Sodium Chloride 0.9% 10 Ml Flush Syringe) 10 ml IV PRN PRN PRN Reason: LINE FLUSH Exam - Constitutional Vitals: Last Vital Signs Temp 97.3 F L 03/10/22 04:38 Pulse 68 03/10/22 04:38 Resp 16 03/10/22 04:38 BP 127/86 03/10/22 04:38 Pulse Ox 95 03/10/22 04:38 Results - Labs lab Results: Laboratory Results - last 24 hr 03/09/22 05:58 Add Manual Diff Complete Total Counted 25 Seg Neuts % (Manual) 76.0 H Band Neutrophils % 0 Lymphocytes % (Manual) 12.0 L Reactive Lymphs % (Man) 0 Monocytes % (Manual) 0 Eosinophils % (Manual) 8.0 H Basophils % (Manual) 0 Metamyelocytes % 4.0 Myelocytes % 0 Promyelocytes % 0 Blast Cells % 0 Nucleated RBC % Not Reportable Seg Neutrophils # Man 0.5 L Band Neutrophils # 0.0 Lymphocytes # (Manual) 0.1 L Abs React Lymphs (Man) 0.0 Monocytes # (Manual) 0.0 Eosinophils # (Manual) 0.0 Basophils # (Manual) 0.0 Metamyelocytes # 0.0 Myelocytes # 0.0 Promyelocytes # 0.0 Blast Cells # 0.0 WBC Morphology Not Reportable Hypersegmented Neuts Not Reportable Hyposegmented Neuts Not Reportable Hypogranular Neuts Not Reportable Smudge Cells Not Reportable Toxic Granulation Not Reportable Toxic Vacuolation Not Reportable Dohle Bodies Not Reportable Pelger-Huet Anomaly Not Reportable Laura Rods Not Reportable Platelet Estimate Consistent w auto Clumped Platelets Not Reportable Plt Clumps, EDTA Not Reportable Large Platelets Not Reportable Giant Platelets Not Reportable Platelet Satelliting Not Reportable Plt Morphology Comment Not Reportable RBC Morphology Not Reportable Dimorphic RBCs Not Reportable Polychromasia Few Hypochromasia Not Reportable Poikilocytosis Not Reportable Anisocytosis Not Reportable Microcytosis Not Reportable Macrocytosis Not Reportable Spherocytes Not Reportable Pappenheimer Bodies Not Reportable Sickle Cells Not Reportable Target Cells 2+ Tear Drop Cells Not Reportable Ovalocytes Not Reportable Helmet Cells Not Reportable [place] Bodies Not Reportable [place] Rings Not Reportable [place] Cells Not Reportable Bite Cells Not Reportable Crenated Cell Not Reportable Elliptocytes Not Reportable Acanthocytes (Spur) Not Reportable Rouleaux Not Reportable Hemoglobin C Crystals Not Reportable Schistocytes Not Reportable Malaria parasites Not Reportable Nelson Bodies Not Reportable Hem Pathologist Commnt No
[2022-03-10] MEDS: HEPARIN 5,000 UNIT/1 ML VIAL SUB-Q SCH (10:08)
[2022-03-10] MEDS: NYSTATIN 500,000 UNIT/5 ML ORAL LIQD PO SCH (10:08)
[2022-03-10] MEDS: FAMOTIDINE 20 MG TAB PO SCH (10:08)
[2022-03-10] MEDS: cefTRIAXone/NS 2 GM/100 ML 2 GM/100 ML BAG IV SCH (10:08)
--- NOTE | 2022-03-10 11:01 | Consultation ---
History of Present Illness - Reason for Consult Consult date: 03/10/22 HIV with concern for PJP Requesting physician: FLO FOWLER - History of Present Illness The patient is a 51-year-old male who was recently incarcerated was admitted to the hospital on 03/06/2022 with complaints of shortness of breath. Reportedly, has a history of pulmonary fibrosis. Upon evaluation, low-grade fevers were noted. Labs showed leukopenia, ferritin 2161, CRP 15.2, procalcitonin 0.34. COVID-19 test came back negative however patient's HIV came back positive. In fectious diseases was consulted for additional evaluation. Chest x-ray on admission, showed bilateral pulmonary opacities. CT chest showed bilateral groundglass opacities with areas of focal consolidation. CT abdomen showed a focal area of subcutaneous emphysema in the left perineum with no fluid collection. Review of Systems: Per HPI Past History Past Medical History: COPD, other (COPD) Past Surgical History: No surgical history, Other (Poor historian) Social history: lives with family, full code Family history: hypertension Medications and Allergies Allergies Allergy/AdvReac Type Severity Reaction Status Date / Time No Known Allergies Allergy Unverified 03/03/22 10:25 Home Medications Medication Instructions Recorded Confirmed Last Taken Type Doxycycline Monohydrate 100 mg PO BID 7 Days #14 03/03/22 03/07/22 Unknown Rx Active Meds: Active Medications Acetaminophen (Acetaminophen 325 Mg Tab) 650 mg PO Q4H PRN PRN Reason: Pain MILD(1-3)/Fever >100.5/LOPEZ Albuterol (Albuterol 2.5 Mg/3 Ml Nebu) 2.5 mg IH Q4HRT PRN PRN Reason: Shortness Of Breath Albuterol/Ipratropium (Ipratropium/Albuterol Sulfate 3 Ml Ampul.Neb) 1 ampul IH BIDRT MINOO Last Admin: 03/10/22 08:20 Dose: 1 ampul Azithromycin (Azithromycin 600 Mg Tab) 600 mg PO 2XW MINOO Famotidine (Famotidine 20 Mg Tab) 20 mg PO BID MINOO Last Admin: 03/10/22 10:08 Dose: 20 mg Guaifenesin (Guaifenesin 100 Mg/5 Ml Oral Liqd) 200 mg PO Q4H PRN PRN Reason: Cough Last Admin: 03/08/22 09:25 Dose: 200 mg Heparin Sodium (Porcine) (Heparin 5,000 Unit/1 Ml Vial) 5,000 unit SUB-Q Q12HR [facility] Last Admin: 03/10/22 10:08 Dose: 5,000 unit Ceftriaxone Sodium (Rocephin/Ns 2 Gm/100 Ml) 2 gm in 100 mls @ 200 mls/hr IV Q24HR MINOO; Protocol Last Admin: 03/10/22 10:08 Dose: 200 mls/hr Trimethoprim/Sulfamethoxazole (200 mg/ Dextrose) 512.5 mls @ 350 mls/hr IV Q6HR MINOO; Protocol Last Admin: 03/10/22 06:02 Dose: 350 mls/hr Methylprednisolone Sodium Succinate (Methylprednisolone Sod Succinate 125 Mg/2 Ml Inj) 60 mg IV Q8HR MINOO Last Admin: 03/10/22 06:02 Dose: 60 mg Morphine Sulfate (Morphine 2 Mg/1 Ml Inj) 2 mg IV Q4H PRN PRN Reason: Pain, Moderate (4-6) Last Admin: 03/06/22 22:29 Dose: 2 mg Nystatin (Nystatin 500,000 Unit/5 Ml Oral Liqd) 500,000 unit PO QID MINOO Last Admin: 03/10/22 10:08 Dose: 500,000 unit Ondansetron HCl (Ondansetron 4 Mg/2 Ml Inj) 4 mg IV Q8H PRN PRN Reason: Nausea And Vomiting Oxycodone/Acetaminophen (Oxycodone /Acetaminophen 5-325mg Tab) 1 tab PO Q6H PRN PRN Reason: Pain, Moderate (4-6) Last Admin: 03/08/22 05:24 Dose: 1 tab Sodium Chloride (Sodium Chloride 0.9% 10 Ml Flush Syringe) 10 ml IV BID [facility] Last Admin: 03/10/22 10:08 Dose: 10 ml Sodium Chloride (Sodium Chloride 0.9% 10 Ml Flush Syringe) 10 ml IV PRN PRN PRN Reason: LINE FLUSH Physical Examination - Physical Exam Narrative exam: Physical Exam: Constitutional: Alert, cooperative. No acute distress. Cachexia Head, Ears, Nose: Normocephalic, atraumatic. External ears, nose normal Eyes: Conjunctivae/corneas clear. No icterus. No ptosis. Neck: Supple, no meningeal signs Cardiovascular: S1, S2 + Respiratory: Good air entry, clear to auscultation bilaterally GI: Soft, non-tender; bowel sounds normal. No peritoneal signs Musculoskeletal: No pedal edema, no cyanosis. Cachexia Skin: No rash or abscess. Sacral decubitus ulcer Hem/Lymphatic: No palpable cervical or supraclavicular nodes. No lymphangitis Psych: Mood ok. Affect normal Neurological: Awake, alert, oriented. No gross abnormality - Constitutional Vitals: Vital Signs Temp Pulse Resp BP Pulse Ox 97.3 F L 68 16 127/86 98 03/10/22 04:38 03/10/22 04:38 03/10/22 04:38 03/10/22 04:38 03/10/22 10:20 Temperature -Last 24 Hours Temperature 97.3 F Temperature 97.4 F Temperature 97.7 F Results - Labs CBC & Chem 7: 03/09/22 05:58 03/09/22 05:58 Labs: Abnormal lab results 03/09/22 Range/Units 05:58 Seg Neuts % (Manual) 76.0 H (40.0-70.0) % Lymphocytes % (Manual) 12.0 L (13.4-35.0) % Eosinophils % (Manual) 8.0 H (0.0-4.3) % Seg Neutrophils # Man 0.5 L (1.8-7.7) K/mm3 Lymphocytes # (Manual) 0.1 L (1.2-5.4) K/mm3 - Imaging and Cardiology CT scan - chest: report reviewed, image reviewed (b/l GGO in lungs) Assessment and Plan Cultures: 03/05/2022 blood culture: No growth A/P: 51-year-old male who was recently incarcerated was admitted to the hospital on 03/06/2022 with complaints of shortness of breath, now with: #Bilateral pneumonia, acute hypoxic respiratory failure: CT showed groundglass opacities concerning for possible PJP. #HIV with likely AIDS: Newly diagnosed. #Leukopenia, neutropenia #Sacral decubitus ulcer #Protein calorie malnutrition Recs: -1 3 beta D glucan, LDH ordered -Continue IV Bactrim and steroids for PCP treatment -HIV RNA PCR, CD4 count ordered -Azithromycin discontinued, MAC prophylaxis is not done routinely anymore based on guidelines -Complete 5 days of ceftriaxone to cover for bacterial pneumonia due to areas of consolidation -Serum cryptococcal antigen, histoplasma urinary antigen ordered -CMV DNA PCR ordered Patient is refusing all blood draws at this time, says he is going to leave the hospital because he has to go to back home to [place]. Shannon Navas MD, FACP, [facility] ([facility] O: [phone] F: [phone] C: [phone]
[2022-03-10] MEDS ORDERED: AZITHROMYCIN 600 MG TAB PO SCH (12:00)
--- NOTE | 2022-03-10 12:40 | Event Note ---
Date: 03/10/22 Patient left AMA prior to being examined/evaluated this morning.
--- NOTE | 2022-03-10 12:49 | Discharge Summary ---
Providers - Providers Date of Admission: 03/06/22 19:58 Date of discharge: 03/10/22 Attending physician: FLO FOWLER MD 03/06/22 Consult to Case Management [CONS] Routine Services Needed at Discharge: Service Agent Notified:: yes 03/06/22 19:58 Consult to Physician [CONS] Routine Comment: Consulting Provider: JESSICA ONEILL Physician Instructions: Reason For Exam: Acute respiratory failure with hypoxia 03/07/22 07:09 Consult to Wound/ET Nurse [CONS] Routine Reason For Exam: Sacral wound 03/07/22 08:45 Physical Therapy Evaluation and Treat [CONS] Routine Comment: Reason For Exam: generalized weakness 03/07/22 11:24 Consult to Physician [CONS] Routine Comment: Consulting Provider: DARRIUS VALDOVINOS Physician Instructions: Reason For Exam: HIV + concern for PJP 03/09/22 07:24 Consult to Physician [CONS] Routine Comment: Consulting Provider: JONH STOVER Physician Instructions: Reason For Exam: Neutropenia + new HIV diagnosis + possible PJP Primary care physician: [facility] ADMINISTRATIVE ASSISTANT Hospitalization Reason for admission: Acute hypoxic respiratory failure, bilateral pneumonia Condition: Stable Pertinent studies: Reviewed. Procedures: None. Hospital course: The patient is a 51-year-old male with no reported past medical history who originally presented from [facility] with complaints of "possible sepsis". On the patient's first visit to the ED, there were complaints of sacral pain where he was found that he had a sacral decubitus ulcer. On further examination the patient was found to be hypotensive and tachycardic with a fever prior to arrival. Patient denied any cough, sore throat, chest pain, urinary symptoms, nausea, vomiting, or abdominal pain. Patient expressed that he was tested for COVID-19 in [facility], and he was found to be negative. The patient initially signed out AMA and was transported back to the [facility] after being rehydrated with IV fluids for his hypotension. At that point the patient was eventually released from [facility], and he presented the following day for difficulty with ambulation and becoming hypoxic. The patient's expressed very clearly that he could not stay in the hospital later than Thursday (03/10/2022) due to him having a scheduled flight back to [place] to be with his family (his original place of origin). The patient required supplemental oxygen upwards of 4-[address] abdomen and pelvis were done to evaluate his sacral decubitus ulcer, and there were findings of a right renal mass (3.1 x 3.3 x 3.4 cm), left perineal focal area of thickening with associated subcutaneous emphysema suggestive of infectious process, 1.9 cm stone in the left collecting duct causing moderate hydronephrosis, and groundglass attenuation within the bilateral lung bases concerning for atypical infection. Patient was tested for HIV, and he was found to be positive (new diagnosis). CT chest was ordered to evaluate for possible pneumocystis pneumonia (PJP) given his immunocompromise state. Pulmonology was consulted as well as infectious disease. Patient was empirically started on IV Bactrim for treatment of PJP and azithromycin for MAC prophylaxis. Despite numerous conversations about the importance of obtaining further medical management, the patient left AMA on 03/10/2022. 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, neutropenia, left renal mass, pulmonary nodule, moderate protein caloric malnutrition Time spent for discharge: 45 min Core Measure Documentation - Palliative Care Palliative Care/ Comfort Measures: Not Applicable - Core Measures Any of the following diagnoses?: none Exam - Constitutional Vitals: Temp Pulse Resp BP Pulse Ox 97.3 F L 80 20 127/86 98 03/10/22 04:38 03/10/22 08:20 03/10/22 08:20 03/10/22 04:38 03/10/22 10:20 General appearance: Present: no acute distress, cachectic - EENT Eyes: Present: PERRL, EOM intact ENT: hearing intact, clear oral mucosa, dentition normal - Neck Neck: Present: supple, normal ROM - Respiratory Respiratory effort: normal Respiratory: bilateral: diminished (3 L nasal cannula) - Cardiovascular Rhythm: regular Heart Sounds: Present: S1 & S2 - Extremities Extremities: no ischemia, pulses intact, pulses symmetrical, No edema, normal temperature, normal color Peripheral Pulses: within normal limits - Abdominal General gastrointestinal: Present: soft, non-tender, non-distended, normal bowel sounds Male genitourinary: Present: deferred - Rectal Rectal Exam: deferred - Integumentary Integumentary: Present: clear, warm, dry - Musculoskeletal Musculoskeletal: generalized weakness - Psychiatric Psychiatric: appropriate mood/affect, memory intact - Neurologic Neurologic: CNII-XII intact, moves all extremities - Allied Health Allied health notes reviewed: nursing, case management Plan Activity: advance as tolerated Diet: regular Additional Instructions: The patient is a 51-year-old male with no reported past medical history who originally presented from [facility] with complaints of "possible sepsis". On the patient's first visit to the ED, there were complaints of sacral pain where he was found that he had a sacral decubitus ulcer. On further examination the patient was found to be hypotensive and tachycardic with a fever prior to arrival. Patient denied any cough, sore throat, chest pain, urinary symptoms, nausea, vomiting, or abdominal pain. Patient expressed that he was tested for COVID-19 in [facility], and he was found to be negative. The patient initially signed out AMA and was transported back to the [facility] after being rehydrated with IV fluids for his hypotension. At that point the patient was eventually released from [facility], and he presented the following day for difficulty with ambulation and becoming hypoxic. The patient's expressed very clearly that he could not stay in the hospital later than Thursday (03/10/2022) due to him having a scheduled flight back to [place] to be with his family (his original place of origin). The patient required supplemental oxygen upwards of 4-[address] abdomen and pelvis were done to evaluate his sacral decubitus ulcer, and there were findings of a right renal mass (3.1 x 3.3 x 3.4 cm), left perineal focal area of thickening with associated subcutaneous emphysema suggestive of infectious process, 1.9 cm stone in the left collecting duct causing moderate hydronephrosis, and groundglass attenuation within the bilateral lung bases concerning for atypical infection. Patient was tested for HIV, and he was found to be positive (new diagnosis). CT chest was ordered to evaluate for possible pneumocystis pneumonia (PJP) given his immunocompromise state. Pulmonology was consulted as well as infectious disease. Patient was empirically started on IV Bactrim for treatment of PJP and azithromycin for MAC prophylaxis. Despite numerous conversations about the importance of obtaining further medical management, the patient left AMA on 03/10/2022. Care Plan Goals: Patient left AMA on 03/10/2022. Assessment: The patient is a 51-year-old male with no reported past medical history who originally presented from [facility] with complaints of "possible sepsis". On the patient's first visit to the ED, there were complaints of sacral pain where he was found that he had a sacral decubitus ulcer. On further examination the patient was found to be hypotensive and tachycardic with a fever prior to arrival. Patient denied any cough, sore throat, chest pain, urinary symptoms, nausea, vomiting, or abdominal pain. Patient expressed that he was tested for COVID-19 in [facility], and he was found to be negative. The patient initially signed out AMA and was transported back to the [facility] after being rehydrated with IV fluids for his hypotension. At that point the patient was eventually released from [facility], and he presented the following day for difficulty with ambulation and becoming hypoxic. The patient's expressed very clearly that he could not stay in the hospital later than Thursday (03/10/2022) due to him having a scheduled flight back to [place] to be with his family (his original place of origin). The patient required supplemental oxygen upwards of 4-[address] abdomen and pelvis were done to evaluate his sacral decubitus ulcer, and there were findings of a right renal mass (3.1 x 3.3 x 3.4 cm), left perineal focal area of thickening with associated subcutaneous emphysema suggestive of infectious process, 1.9 cm stone in the left collecting duct causing moderate h ydronephrosis, and groundglass attenuation within the bilateral lung bases concerning for atypical infection. Patient was tested for HIV, and he was found to be positive (new diagnosis). CT chest was ordered to evaluate for possible pneumocystis pneumonia (PJP) given his immunocompromise state. Pulmonology was consulted as well as infectious disease. Patient was empirically started on IV Bactrim for treatment of PJP and azithromycin for MAC prophylaxis. Despite numerous conversations about the importance of obtaining further medical management, the patient left AMA on 03/10/2022. Follow up with: TUCKER VEGA MD [Primary Care Provider] - 3-5 Days
[2022-03-10] MEDS ORDERED: TBO-FILGRASTIM 300 MCG/0.5 ML SUB-Q SCH (14:00)
== END 2022-03-10 12:15 | disposition left against medical advice (07) | DRG 974 ==
LOC: ED 10:57 → EEVIPCON 10:57 → 3A 03-06 19:58
PROVIDERS: ADMIT Internal Medicine; ATTEND Student in an Organized Health Care Education/Training Program
DX: J15.6 Pneumonia due to other Gram-negative bacteria (principal); J96.01 Acute respiratory failure with hypoxia; B20 Human immunodeficiency virus [HIV] disease; J44.1 Chronic obstructive pulmonary disease with (acute) exacerbation; E44.0 Moderate protein-calorie malnutrition; Z68.1 Body mass index [BMI] 19.9 or less, adult; J44.0 Chronic obstructive pulmonary disease with (acute) lower respiratory infection; B59 Pneumocystosis; Z20.822 Contact with and (suspected) exposure to COVID-19; J84.10 Pulmonary fibrosis, unspecified; L89.159 Pressure ulcer of sacral region, unspecified stage; Z82.49 Family history of ischemic heart disease and other diseases of the circulatory system; D70.9 Neutropenia, unspecified; N28.9 Disorder of kidney and ureter, unspecified
CPT/HCPCS: 36415; 71045; 71260; 74177; 80048; 80053; 81001; 82140; 82728; 83615; 84145; 84484; 85007; 85025; 85379; 85610; 86140; 86689; 86738; 87040; 87535; 87806; 93005; 94640; 94760; 99284; G0378; J3260; J7060; J0456; J0692; J0696; J1447; J1644; J1956; J2270; J2930; J3370; J7030; Q9967; U0003